=== PATIENT | female | born 1995 | race Caucasian/White ===

== ENCOUNTER 2017-08-21 01:00 | Emergency (ER) | payer OTHER ==
[2017-08-21] MEDS ORDERED: SODIUM CHLORIDE 0.9% 1,000 ML IV ONE (02:24)
[2017-08-21 02:32] LABS: Appearance,Urine Clear (Clear); Bilirubin,Urine Negative (Negative); Glucose,Urine (UA) Negative (Negative); Ketones,Urine Negative (Negative); Leukocyte Esterase,Urine Negative (Negative); Nitrite,Urine Negative (Negative); PH, Urine 6.5 (5.0-8.0); Protein,Urine Negative (Negative); Specific Gravity,Urine 1.003 (1.001-1.035); UA Billing (MACRO vs. MICRO) CHEM; Urobilinogen,Urine <2.0 mg/dL (<2.0)
[2017-08-21 03:04] LABS: Basophils # (A) 0.1 k/uL (0-0.2); Basophils % (A) 1 %; CH 28.4; CHCM 32.5; Eosinophils # (A) 0.2 k/uL (0-0.7); Eosinophils % (A) 2 %; HCT 42.2 % (34.0-46.0); HDW 2.57; HGB 13.6 gm/dL (11.4-16.0); Luc # (Auto) 0.24; Luc % (Auto) 3; Lymphocytes # (A) 3.3 k/uL (1.0-4.8); Lymphocytes % (A) 36 %; MCH 28.3 pg (25.0-35.0); MCHC 32.2 g/dL (31.0-37.0); MCV 87.8 fL (80.0-100.0); Mean Platelet Volume 6.6; Monocytes # (A) 0.6 k/uL (0-1.0); Monocytes % (A) 6 %; Neutrophils # (A) 4.9 k/uL (1.3-7.7); Neutrophils % (A) 53 %; WBC 9.2 k/uL (4.0-11.0); WBC (Perox) 8.66
[2017-08-21 03:06] LABS: ALT 32 U/L (9-52); AST 21 U/L (14-36); Alkaline Phosphatase 91 U/L (38-126); Anion Gap 12 mmol/L; Blood Urea Nitrogen 10 mg/dL (7-17); Calcium 9.5 mg/dL (8.4-10.2); Carbon Dioxide 23 mmol/L (22-30); Chloride 104 mmol/L (98-107); Glucose 89 mg/dL (74-99); Non-African American GFR(MDRD) >60 (>60 ml/min/1.73 sqM); Potassium 3.6 mmol/L (3.5-5.1); Sodium 139 mmol/L (137-145); Total Bilirubin 0.3 mg/dL (0.2-1.3); Total Protein 7.7 g/dL (6.3-8.2)
--- NOTE | 2017-08-21 03:19 | XR ---
EXAMINATION TYPE: XR chest 2V DATE OF EXAM: 08/21/2017 COMPARISON: NONE HISTORY: Congestion. Pain. TECHNIQUE: Frontal and lateral views of the chest are obtained. FINDINGS: Heart and mediastinum are normal. Lungs are clear. Diaphragm is normal. Bony thorax appear s normal. IMPRESSION: Normal chest
--- NOTE | 2017-08-21 03:59 | ED ---
Abdominal Pain HPI - General Chief Complaint: Abdominal Pain Stated Complaint: Lump in Throat/Stomach Pain Time Seen by Provider: 08/21/17 02:09 Source: patient, RN notes reviewed, old records reviewed Mode of arrival: ambulatory Limitations: no limitations - History of Present Illness Initial Comments: This is a 22 year old female with multiple complaints. She reports that she has had a sore throat, lower abdominal pain, cough, and concern for possible . Patient also reports she has noticed swelling on her neck from lymphnodes. She repots she has had a sore throat for 1 week, accompanied by a dry non productive cough. She reports that she does not smoke. She also reports that she has had unprotected sex 1 week ago, and thinks she is . She has no fever or chills, received all child vaccines and denies travel history. She states that she has had no nausea, vomiting, patient deines any dysuria, or changes in bowel movemnts. Denies any history of sick contacts. - Related Data Previous Rx's Medication Instructions Recorded Azithromycin [Zithromax Z-pack] 250 mg PO DIRECTED #6 tab 08/21/17 methylPREDNISolone Dose Pack 4 mg PO DIRECTED #21 package 08/21/17 [Medrol Dose Pack] Allergies Allergy/AdvReac Type Severity Reaction Status Date / Time No Known Allergies Allergy Verified 08/21/17 01:31 Review of Systems ROS Statement: Those systems with pertinent positive or pertinent negative responses have been documented in the HPI. ROS Other: All systems not noted in ROS Statement are negative. Past Medical History Past Medical History: Asthma History of Any Multi-Drug Resistant Organisms: None Reported Past Surgical History: No Surgical Hx Reported Past Psychological History: No Psychological Hx Reported Smoking Status: Never smoker Past Alcohol Use History: None Reported Past Drug Use History: None Reported General Exam - General Exam Comments Initial Comments: This is a 22 year old female, no distress. Limitations: no limitations General appearance: alert, in no apparent distress Head exam: Present: atraumatic, normocephalic, normal inspection Eye exam: Present: normal appearance, PERRL, EOMI. Absent: scleral icterus, conjunctival injection, periorbital swelling ENT exam: Present: normal exam, mucous membranes moist. Absent: normal oropharynx (erythematous oropharynx. ) Neck exam: Present: normal inspection, lymphadenopathy (anterior cerivcal right sided lymphadenopathy). Absent: tenderness, meningismus Respiratory exam: Present: normal lung sounds bilaterally, other (persistent cough, non productive. ). Absent: respiratory distress, wheezes, rales, rhonchi , stridor Cardiovascular Exam: Present: regular rate, normal rhythm, normal heart sounds. Absent: systolic murmur, diastolic murmur, rubs, gallop, clicks GI/Abdominal exam: Present: soft, normal bowel sounds. Absent: distended, tenderness, guarding, rebound, rigid Extremities exam: Present: normal inspection, full ROM, normal capillary refill. Absent: tenderness, pedal edema, joint swelling, calf tenderness Back exam: Present: normal inspection Neurological exam: Present: alert, oriented X3, CN II-XII intact Psychiatric exam: Present: normal affect, normal mood Skin exam: Present: warm, dry, intact, normal color. Absent: rash Course Vital Signs 08/21/17 08/21/17 01:26 04:03 Temperature 98.7 F 97.6 F Pulse Rate 89 79 Respiratory 16 18 Rate Blood Pressure 155/97 117/55 O2 Sat by Pulse 100 99 Oximetry Medical Decision Making - Medical Decision Making This is a 22 year old female with multiple complaints. She reports that she has had a sore throat, lower abdominal pain, cough, and concern for possible . Patient also reports she has noticed swelling on her neck from lymphnodes. She repots she has had a sore throat for 1 week, accompanied by a dry non productive cough. Patient has erythematous oropharynx, and significant cough. Lungs are clear to auscultaion. Patient test is negative. Discused that based off of when she had intercourse, she could possibly be and test be negative. Discussed repeat test in 3 weeks. Paitent will be started on medrol dose pack and azithromycin for bronchitis and pharyngitis. Discussed returning to ED if any alarming signs or symptoms occur. - Lab Data Result diagrams: 08/21/17 02:30 08/21/17 02:30 Lab Results 08/21/17 08/21/17 08/21/17 Range/Units 01:35 01:35 02:30 WBC 9.2 (4.0-11.0) k/uL RBC 4.80 (3.80-5.40) m/uL Hgb 13.6 (11.4-16.0) gm/dL Hct 42.2 (34.0-46.0) % MCV 87.8 (80.0-100.0) fL MCH 28.3 (25.0-35.0) pg MCHC 32.2 (31.0-37.0) g/dL RDW 14.0 (11.5-15.5) % Plt Count 271 (150-450) k/uL Neutrophils % 53 % Lymphocytes % 36 % Monocytes % 6 % Eosinophils % 2 % Basophils % 1 % Neutrophils # 4.9 (1.3-7.7) k/uL Lymphocytes # 3.3 (1.0-4.8) k/uL Monocytes # 0.6 (0-1.0) k/uL Eosinophils # 0.2 (0-0.7) k/uL Basophils # 0.1 (0-0.2) k/uL Sodium (137-145) mmol/L Potassium (3.5-5.1) mmol/L Chloride (98-107) mmol/L Carbon Dioxide (22-30) mmol/L Anion Gap mmol/L BUN (7-17) mg/dL Creatinine (0.52-1.04) mg/dL Est GFR (MDRD) Af Amer (>60 ml/min/1.73 sqM) Est GFR (MDRD) Non-Af (>60 ml/min/1.73 sqM) Glucose (74-99) mg/dL Calcium (8.4-10.2) mg/dL Total Bilirubin (0.2-1.3) mg/dL AST (14-36) U/L ALT (9-52) U/L Alkaline Phosphatase (38-126) U/L Total Protein (6.3-8.2) g/dL Albumin (3.5-5.0) g/dL Urine Color Colorless Urine Appearance Clear (Clear) Urine pH 6.5 (5.0-8.0) Ur Specific [place] 1.003 (1.001-1.035) Urine Protein Negative (Negative) Urine Glucose (UA) Negative (Negative) Urine Ketones Negative (Negative) Urine Blood Negative (Negative) Urine Nitrite Negative (Negative) Urine Bilirubin Negative (Negative) Urine Urobilinogen <2.0 (<2.0) mg/dL Ur Leukocyte Esterase Negative (Negative) Urine HCG, Qual Not Detected (Not Detectd) Group A Strep Rapid (Negative) 08/21/17 08/21/17 Range/Units 02:30 02:35 WBC (4.0-11.0) k/uL RBC (3.80-5.40) m/uL Hgb (11.4-16.0) gm/dL Hct (34.0-46.0) % MCV (80.0-100.0) fL MCH (25.0-35.0) pg MCHC (31.0-37.0) g/dL RDW (11.5-15.5) % Plt Count (150-450) k/uL Neutrophils % % Lymphocytes % % Monocytes % % Eosinophils % % Basophils % % Neutrophils # (1.3-7.7) k/uL Lymphocytes # (1.0-4.8) k/uL Monocytes # (0-1.0) k/uL Eosinophils # (0-0.7) k/uL Basophils # (0-0.2) k/uL Sodium 139 (137-145) mmol/L Potassium 3.6 (3.5-5.1) mmol/L Chloride 104 (98-107) mmol/L Carbon Dioxide 23 (22-30) mmol/L Anion Gap 12 mmol/L BUN 10 (7-17) mg/dL Creatinine 0.70 (0.52-1.04) mg/dL Est GFR (MDRD) Af Amer >60 (>60 ml/min/1.73 sqM) Est GFR (MDRD) Non-Af >60 (>60 ml/min/1.73 sqM) Glucose 89 (74-99) mg/dL Calcium 9.5 (8.4-10.2) mg/dL Total Bilirubin 0.3 (0.2-1.3) mg/dL AST 21 (14-36) U/L ALT 32 (9-52) U/L Alkaline Phosphatase 91 (38-126) U/L Total Protein 7.7 (6.3-8.2) g/dL Albumin 4.2 (3.5-5.0) g/dL Urine Color Urine Appearance (Clear) Urine pH (5.0-8.0) Ur Specific [place] (1.001-1.035) Urine Protein (Negative) Urine Glucose (UA) (Negative) Urine Ketones (Negative) Urine Blood (Negative) Urine Nitrite (Negative) Urine Bilirubin (Negative) Urine Urobilinogen (<2.0) mg/dL Ur Leukocyte Esterase (Negative) Urine HCG, Qual (Not Detectd) Group A Strep Rapid Negative (Negative) - Radiology Data Radiology results: report reviewed Chest x-ray was reviewed and shows normal chest. Disposition Clinical Impression: Pharyngitis, Abdominal pain Disposition: HOME SELF-CARE Condition: Good Instructions: Pharyngitis (ED) Additional Instructions: patient has a rest, increase fluids. Patient should follow up with primary care provider. Return to the emergency department if any alarming signs or symptoms occur. Prescriptions: Azithromycin [Zithromax Z-pack] 250 mg PO DIRECTED #6 tab methylPREDNISolone Dose Pack [Medrol Dose Pack] 4 mg PO DIRECTED #21 package Referrals: None,Stated [Primary Care Provider] - 1-2 days Alba Ramos MD [STAFF PHYSICIAN] - 1-2 days Time of Disposition: 03:58
[2017-08-21 04:07] VITALS: BP 117/55; PULSE 79; RESP 18; TEMP 97.6
== END 2017-08-21 04:12 | disposition home or self-care (01) ==
LOC: EC 01:00
DX: R10.30 Lower abdominal pain, unspecified (principal); J02.9 Acute pharyngitis, unspecified
CPT/HCPCS: 36415; 71020; 80053; 81003; 81025; 85025; 87081; 87430; 96360; 99284

== ENCOUNTER 2019-08-15 19:51 | Inpatient (IN) | payer OTHER ==
[2019-08-15] MEDS ORDERED: ACETAMINOPHEN TAB 325 MG TAB PO STA (20:41)
[2019-08-15] MEDS ORDERED: IBUPROFEN IV 800 MG in SODIUM CHLORIDE 0.9% 250 ML IV ONE (20:42)
[2019-08-15] MEDS ORDERED: SODIUM CHLORIDE 0.9% 2,000 ML IV ONE (20:42)
[2019-08-15] MEDS ORDERED: ONDANSETRON 4 MG/2 ML VIAL IVP STA (20:42)
[2019-08-15 21:22] LABS: Albumin 3.2 g/dL (3.5-5.0); Calcium 8.2 mg/dL (8.4-10.2); Total Bilirubin 0.9 mg/dL (0.2-1.3); Total Protein 6.5 g/dL (6.3-8.2)
[2019-08-15 21:25] LABS: INR 1.1 (<1.2); Partial Thromboplastin Time 29.7 sec (22.0-30.0); Prothrombin Time 11.2 sec (9.0-12.0)
[2019-08-15 21:40] LABS: Basophils # (A) 0.2 k/uL (0-0.2); Basophils % (A) 1 %; Eosinophils # (A) 0.2 k/uL (0-0.7); Eosinophils % (A) 1 %; HCT 31.1 % (34.0-46.0); HGB 11.1 gm/dL (11.4-16.0); Lymphocytes # (A) 0.8 k/uL (1.0-4.8); Lymphocytes % (A) 4 %; MCH 29.2 pg (25.0-35.0); MCHC 35.6 g/dL (31.0-37.0); MCV 82.1 fL (80.0-100.0); Mean Platelet Volume 7.3; Monocytes # (A) 1.1 k/uL (0-1.0); Monocytes % (A) 5 %; Neutrophils # (A) 18.6 k/uL (1.3-7.7); Neutrophils % (A) 89 %; Platelet Count 220 k/uL (150-450); RBC 3.79 m/uL (3.80-5.40); RDW 12.7 % (11.5-15.5)
[2019-08-15 22:10] LABS: Appearance,Urine Cloudy (Clear); Bilirubin,Urine Negative (Negative); Blood,Urine Small (Negative); Color,Urine Yellow; Glucose,Urine (UA) Negative (Negative); Ketones,Urine Negative (Negative); Leukocyte Esterase,Urine Moderate (Negative); Mucus,Urine Rare /hpf; Nitrite,Urine Negative (Negative); Protein,Urine 1+ (Negative); RBC,Urine 5 /hpf (0-5); Specific Gravity,Urine 1.006 (1.001-1.035); Squamous Epithelial Cell,Urine 1 /hpf (0-4); Urobilinogen,Urine <2.0 mg/dL (<2.0); WBC,Urine 16 /hpf (0-5)
--- NOTE | 2019-08-16 00:03 | CT ---
EXAMINATION TYPE: CT abdomen pelvis wo con DATE OF EXAM: 08/15/2019 COMPARISON: None HISTORY: low back pain CT DLP: 733.9 mGycm Automated exposure control for dose reduction was used. TECHNIQUE: Helical acquisition of images was performed from the lung bases through the pelvis. FINDINGS: There is subsegmental atelectasis at the posterior lung bases. Heart size is normal. There is no fidel cardial effusion. There is no pleural effusion. Liver shows no focal defect. Spleen is intact. The st omach appears normal. There is no evidence of pancreatic mass. Gallbladder appears normal. There is n o adrenal mass. Right kidney is larger than the left. There is minimal right-sided perinephric edema. There is mild ectasia of the right ureter. There is right side periureteral edema. I see no definite ureteral calculus. There is no retroperitoneal adenopathy. There is small umbilical hernia that cont ains fat. The appendix appears normal. Bladder distends smoothly. Uterus is anteverted. There is tiny amount of free fluid in the pelvis. Karen mbar spine is intact. Bony pelvis appears intact. I see no bony destructive process. There is no mesenteric edema. There is no ascites or free air. There is no sign of a bowel obstructio n. IMPRESSION: DIFFUSE SWELLING OF THE ENTIRE RIGHT KIDNEY WITH PERINEPHRIC EDEMA AND PERIURETERAL EDEMA. THIS PROBA EMILY RELATES TO ACUTE SEVERE PYELONEPHRITIS. NORMAL APPENDIX.
[2019-08-16] MEDS ORDERED: NALOXONE 0.4 MG/ML 1 ML VIAL IV PRN (00:50)
[2019-08-16] MEDS ORDERED: MORPHINE SULFATE 4 MG/ML SYRINGE IVP PRN (00:52)
--- NOTE | 2019-08-16 00:55 | ED ---
General Adult HPI - General Chief complaint: Nausea/Vomiting/Diarrhea Stated complaint: Vomiting/diarrhea Time Seen by Provider: 08/15/19 20:25 Source: patient, family Mode of arrival: ambulatory Limitations: no limitations - History of Present Illness Initial comments: 24-year-old female patient presents to the emergency department today for multiple complaints including vomiting, diarrhea, fever, chills, generalized body aches, and bilateral flank pain. Patient states symptoms have been going on over the last 5 days. Patient states that nothing she tries is making her feel better. Patient states she tried taking ibuprofen this morning but vomited up. Those last episode of vomiting today. She denies chance of . She denies any recent travel or sick contacts. Denies any cough or sore throat. She is reporting headache and neck stiffness. Patient denies any recent rash, shortness breath, chest pain, diarrhea, constipation, numbness, tingling, dizziness, weakness, visual changes, or any other complaints. - Related Data Previous Rx's Medication Instructions Recorded Azithromycin [Zithromax Z-pack] 250 mg PO DIRECTED #6 tab 08/21/17 methylPREDNISolone Dose Pack 4 mg PO DIRECTED #21 package 08/21/17 [Medrol Dose Pack] Allergies Allergy/AdvReac Type Severity Reaction Status Date / Time benzoyl peroxide Allergy Swelling Verified 08/15/19 20:06 Review of Systems ROS Statement: Those systems with pertinent positive or pertinent negative responses have been documented in the HPI. ROS Other: All systems not noted in ROS Statement are negative. Past Medical History Past Medical History: Asthma History of Any Multi-Drug Resistant Organisms: None Reported Past Surgical History: No Surgical Hx Reported Past Psychological History: No Psychological Hx Reported Smoking Status: Never smoker Past Alcohol Use History: Occasional Past Drug Use History: None Reported General Exam Limitations: no limitations General appearance: alert, in no apparent distress, other (This is a well- developed, well-nourished adult female patient in mild distress. Vital signs upon presentation are temperature 102.3F, pulse 147, respirations 20, blood pressure 97/65, pulse ox 99% on room air.) Eye exam: Present: normal appearance, PERRL, EOMI. Absent: scleral icterus, conjunctival injection, periorbital swelling ENT exam: Present: normal exam, normal oropharynx, mucous membranes moist Respiratory exam: Present: normal lung sounds bilaterally. Absent: respiratory distress, wheezes, rales, rhonchi, stridor Cardiovascular Exam: Present: regular rate, normal rhythm, normal heart sounds. Absent: systolic murmur, diastolic murmur, rubs, gallop, clicks GI/Abdominal exam: Present: soft, tenderness (Suprapubic), normal bowel sounds. Absent: distended, guarding, rebound, rigid Back exam: Present: normal inspection, CVA tenderness (R) (Exquisite), CVA tenderness (L) Neurological exam: Present: alert, oriented X3, CN II-XII intact Psychiatric exam: Present: normal affect, normal mood Skin exam: Present: warm, dry, intact, normal color. Absent: rash Course Vital Signs 08/15/19 08/15/19 08/16/19 20:01 22:06 00:35 Temperature 102.3 F H 100.7 F H 98 F Pulse Rate 147 H 119 H 110 H Respiratory 20 20 18 Rate Blood Pressure 97/65 110/70 103/58 O2 Sat by Pulse 99 99 98 Oximetry Medical Decision Making - Medical Decision Making 24-year-old female patient presents to the emergency department today for evaluation of fever, vomiting, generalized body aches, and bilateral flank pain. Physical examination reveals exquisite right CVA tenderness. Suprapubic tenderness. Labs reviewed and did reveal white blood cell count of 21, hemoglobin 11.1, neutrophils of 18.6. Sodium is 132, chloride 97. BUN elevated at 20, creatinine 1.91. Glucose is 139. Urinalysis shows a cloudy appearance with 1+ protein, small blood, moderate leukocyte esterase, 16 white blood cells, rare mucous. HCG is negative. Influenza testing is negative. CT of the abdomen and pelvis without contrast was obtained and did show severe right-sided pyelonephritis. I did discuss findings and results with the patient. She was started on Rocephin. IV fluids initiated. She'll be admitted to the hospital for further evaluation. - Lab Data Result diagrams: 08/15/19 20:32 08/15/19 20:32 Lab Results 08/15/19 08/15/19 08/15/19 Range/Units 20:32 20:32 20:32 WBC 21.0 H (3.8-10.6) k/uL RBC 3.79 L (3.80-5.40) m/uL Hgb 11.1 L (11.4-16.0) gm/dL Hct 31.1 L (34.0-46.0) % MCV 82.1 (80.0-100.0) fL MCH 29.2 (25.0-35.0) pg MCHC 35.6 (31.0-37.0) g/dL RDW 12.7 (11.5-15.5) % Plt Count 220 (150-450) k/uL Neutrophils % 89 % Lymphocytes % 4 % Monocytes % 5 % Eosinophils % 1 % Basophils % 1 % Neutrophils # 18.6 H (1.3-7.7) k/uL Lymphocytes # 0.8 L (1.0-4.8) k/uL Monocytes # 1.1 H (0-1.0) k/uL Eosinophils # 0.2 (0-0.7) k/uL Basophils # 0.2 (0-0.2) k/uL PT (9.0-12.0) sec INR (<1.2) APTT (22.0-30.0) sec Sodium 132 L (137-145) mmol/L Potassium 4.0 (3.5-5.1) mmol/L Chloride 97 L (98-107) mmol/L Carbon Dioxide 24 (22-30) mmol/L Anion Gap 11 mmol/L BUN 20 H (7-17) mg/dL Creatinine 1.91 H (0.52-1.04) mg/dL Est GFR (CKD-EPI)AfAm 42 (>60 ml/min/1.73 sqM) Est GFR (CKD-EPI)NonAf 37 (>60 ml/min/1.73 sqM) Glucose 139 H (74-99) mg/dL Plasma Lactic Acid Tuan 1.4 (0.7-2.0) mmol/L Calcium 8.2 L (8.4-10.2) mg/dL Total Bilirubin 0.9 (0.2-1.3) mg/dL AST 21 (14-36) U/L ALT 24 (9-52) U/L Alkaline Phosphatase 107 (38-126) U/L Total Protein 6.5 (6.3-8.2) g/dL Albumin 3.2 L (3.5-5.0) g/dL Urine Color Urine Appearance (Clear) Urine pH (5.0-8.0) Ur Specific [place] (1.001-1.035) Urine Protein (Negative) Urine Glucose (UA) (Negative) Urine Ketones (Negative) Urine Blood (Negative) Urine Nitrite (Negative) Urine Bilirubin (Negative) Urine Urobilinogen (<2.0) mg/dL Ur Leukocyte Esterase (Negative) Urine RBC (0-5) /hpf Urine WBC (0-5) /hpf Ur Squamous Epith Cells (0-4) /hpf Urine Mucus (None) /hpf Urine HCG, Qual (Not Detectd) Influenza Type A RNA (Not Detectd) Influenza Type B (PCR) (Not Detectd) 08/15/19 08/15/19 08/15/19 Range/Units 20:32 21:04 21:55 WBC (3.8-10.6) k/uL RBC (3.80-5.40) m/uL Hgb (11.4-16.0) gm/dL Hct (34.0-46.0) % MCV (80.0-100.0) fL MCH (25.0-35.0) pg MCHC (31.0-37.0) g/dL RDW (11.5-15.5) % Plt Count (150-450) k/uL Neutrophils % % Lymphocytes % % Monocytes % % Eosinophils % % Basophils % % Neutrophils # (1.3-7.7) k/uL Lymphocytes # (1.0-4.8) k/uL Monocytes # (0-1.0) k/uL Eosinophils # (0-0.7) k/uL Basophils # (0-0.2) k/uL PT 11.2 (9.0-12.0) sec INR 1.1 (<1.2) APTT 29.7 (22.0-30.0) sec Sodium (137-145) mmol/L Potassium (3.5-5.1) mmol/L Chloride (98-107) mmol/L Carbon Dioxide (22-30) mmol/L Anion Gap mmol/L BUN (7-17) mg/dL Creatinine (0.52-1.04) mg/dL Est GFR (CKD-EPI)AfAm (>60 ml/min/1.73 sqM) Est GFR (CKD-EPI)NonAf (>60 ml/min/1.73 sqM) Glucose (74-99) mg/dL Plasma Lactic Acid Tuan (0.7-2.0) mmol/L Calcium (8.4-10.2) mg/dL Total Bilirubin (0.2-1.3) mg/dL AST (14-36) U/L ALT (9-52) U/L Alkaline Phosphatase (38-126) U/L Total Protein (6.3-8.2) g/dL Albumin (3.5-5.0) g/dL Urine Color Yellow Urine Appearance Cloudy H (Clear) Urine pH 6.0 (5.0-8.0) Ur Specific [place] 1.006 (1.001-1.035) Urine Protein 1+ H (Negative) Urine Glucose (UA) Negative (Negative) Urine Ketones Negative (Negative) Urine Blood Small H (Negative) Urine Nitrite Negative (Negative) Urine Bilirubin Negative (Negative) Urine Urobilinogen <2.0 (<2.0) mg/dL Ur Leukocyte Esterase Moderate H (Negative) Urine RBC 5 (0-5) /hpf Urine WBC 16 H (0-5) /hpf Ur Squamous Epith Cells 1 (0-4) /hpf Urine Mucus Rare H (None) /hpf Urine HCG, Qual (Not Detectd) Influenza Type A RNA Not Detected (Not Detectd) Influenza Type B (PCR) Not Detected (Not Detectd) 08/15/19 Range/Units 21:55 WBC (3.8-10.6) k/uL RBC (3.80-5.40) m/uL Hgb (11.4-16.0) gm/dL Hct (34.0-46.0) % MCV (80.0-100.0) fL MCH (25.0-35.0) pg MCHC (31.0-37.0) g/dL RDW (11.5-15.5) % Plt Count (150-450) k/uL Neutrophils % % Lymphocytes % % Monocytes % % Eosinophils % % Basophils % % Neutrophils # (1.3-7.7) k/uL Lymphocytes # (1.0-4.8) k/uL Monocytes # (0-1.0) k/uL Eosinophils # (0-0.7) k/uL Basophils # (0-0.2) k/uL PT (9.0-12.0) sec INR (<1.2) APTT (22.0-30.0) sec Sodium (137-145) mmol/L Potassium (3.5-5.1) mmol/L Chloride (98-107) mmol/L Carbon Dioxide (22-30) mmol/L Anion Gap mmol/L BUN (7-17) mg/dL Creatinine (0.52-1.04) mg/dL Est GFR (CKD-EPI)AfAm (>60 ml/min/1.73 sqM) Est GFR (CKD-EPI)NonAf (>60 ml/min/1.73 sqM) Glucose (74-99) mg/dL Plasma Lactic Acid Tuan (0.7-2.0) mmol/L Calcium (8.4-10.2) mg/dL Total Bilirubin (0.2-1.3) mg/dL AST (14-36) U/L ALT (9-52) U/L Alkaline Phosphatase (38-126) U/L Total Protein (6.3-8.2) g/dL Albumin (3.5-5.0) g/dL Urine Color Urine Appearance (Clear) Urine pH (5.0-8.0) Ur Specific [place] (1.001-1.035) Urine Protein (Negative) Urine Glucose (UA) (Negative) Urine Ketones (Negative) Urine Blood (Negative) Urine Nitrite (Negative) Urine Bilirubin (Negative) Urine Urobilinogen (<2.0) mg/dL Ur Leukocyte Esterase (Negative) Urine RBC (0-5) /hpf Urine WBC (0-5) /hpf Ur Squamous Epith Cells (0-4) /hpf Urine Mucus (None) /hpf Urine HCG, Qual Not Detected (Not Detectd) Influenza Type A RNA (Not Detectd) Influenza Type B (PCR) (Not Detectd) - Radiology Data Radiology results: report reviewed, image reviewed CT abdomen and pelvis without contrast was obtained. Report reviewed in its entirety. Impression by Dr. Lopez shows diffuse swelling of the entire right kidney with perinephric edema and periureteral edema. This probably relates to acute severe pyelonephritis. Normal appendix. Disposition Clinical Impression: Pyelonephritis of right kidney, Acute kidney injury, Sepsis Disposition: ADMITTED IP TO THIS HOSP Condition: Serious Referrals: None,Stated [Primary Care Provider] - 1-2 days Decision to Admit Reason: Admit from EC Decision Date: 08/16/19 Decision Time: 00:59
[2019-08-16] MEDS: SODIUM CHLORIDE 0.9% 1,000 ML IV SCH (02:34)
[2019-08-16 03:34] VITALS: BMI 36.9
[2019-08-16] MEDS: ONDANSETRON 4 MG/2 ML VIAL IVP PRN ×2 (13:21→22:55)
[2019-08-16] MEDS: HYDROmorphone 0.5 MG/0.5 ML SYRINGE IVP PRN ×2 (13:23→22:50)
--- NOTE | 2019-08-16 13:26 | P.HPIM ---
History of Present Illness 22-year-old presents female came in with the nausea vomiting diarrhea fever chills body aches bilateral flank pain along with suprapubic pain dysuria patient had multiple episodes of vomiting has been taking ibuprofen multiple times a day patient's symptoms has been going on for about 5 days denies any chance of . Denied any recent sick travel or sick contacts. Patient is found to have significantly abnormal urine with a leukocytosis pyelonephritis on the CAT scan. There is no obvious nephrolithiasis on the CAT scan. Patient's creatinine is elevated to 1.9 probably related to intake of nonsteroidal anti-inflammatory medications. Patient has perinephric edema and diffuse swelling of the entire right kidney Review of Systems REVIEW OF SYSTEMS: CONSTITUTIONAL: As mentioned in HPI HEENT: No recent visual problems or hearing problems. Denied any sore throat. CARDIOVASCULAR: No chest pain, orthopnea, PND, no palpitations, no syncope. PULMONARY: No shortness of breath, no cough, no hemoptysis. GASTROINTESTINAL: As mentioned in HPI. NEUROLOGICAL: No headaches, no weakness, no numbness. HEMATOLOGICAL: Denies any bleeding or petechiae. GENITOURINARY: Denies any burning micturition, frequency, or urgency. MUSCULOSKELETAL/RHEUMATOLOGICAL: Denies any joint pain, swelling, or any muscle pain. ENDOCRINE: Denies any polyuria or polydipsia. The rest of the 14-point review of systems is negative. Past Medical History Past Medical History: Asthma History of Any Multi-Drug Resistant Organisms: None Reported Past Surgical History: No Surgical Hx Reported Past Anesthesia/Blood Transfusion Reactions: No Reported Reaction Past Psychological History: No Psychological Hx Reported Smoking Status: Never smoker Past Alcohol Use History: Occasional Past Drug Use History: None Reported Additional Drug Use History / Comment(s): Smokes occasionally - Past Family History Mother Family Medical History: No Reported History Medications and Allergies Home Medications Medication Instructions Recorded Confirmed Type Ibuprofen [Motrin Ib] 200 mg PO Q6H PRN 08/16/19 08/16/19 History Allergies Allergy/AdvReac Type Severity Reaction Status Date / Time benzoyl peroxide Allergy Intermediate Swelling Verified 08/16/19 07:55 Physical Exam Vitals: Vital Signs Temp Pulse Pulse Resp BP BP BP 08/16/19 08:17 98.2 F 102 H 14 106/69 08/16/19 08:16 81/57 08/16/19 08:15 81/57 08/16/19 03:20 98.1 F 106 H 18 100/66 08/16/19 02:31 97.7 F 98 18 102/67 08/16/19 00:35 98 F 110 H 18 103/58 08/15/19 22:06 100.7 F H 119 H 20 110/70 08/15/19 20:01 102.3 F H 147 H 20 97/65 Pulse Ox 08/16/19 08:17 98 08/16/19 08:16 08/16/19 08:15 08/16/19 03:20 98 08/16/19 02:31 98 08/16/19 00:35 98 08/15/19 22:06 99 08/15/19 20:01 99 Intake and Output 08/15/19 08/16/19 08/16/19 22:59 06:59 14:59 Intake Total 1400 Output Total 100 350 Balance 1300 -350 Intake: Oral 1400 Output: Urine 100 350 Other: Voiding Method Toilet Toilet Toilet Weight 83.007 kg 85.474 kg PHYSICAL EXAMINATION: GENERAL: The patient is alert and oriented x3, not in any acute distress. Well developed, well nourished. Patient is a very appears to be fatigued and tired HEENT: Pupils are round and equally reacting to light. EOMI. No scleral icterus. No conjunctival pallor. Normocephalic, atraumatic. No pharyngeal erythema. No thyromegaly. CARDIOVASCULAR: S1 and S2 present. No murmurs, rubs, or gallops. PULMONARY: Chest is clear to auscultation, no wheezing or crackles. ABDOMEN: She does have tenderness in both the CVA areas including suprapubic tenderness MUSCULOSKELETAL: No joint swelling or deformity. EXTREMITIES: No cyanosis, clubbing, or pedal edema. NEUROLOGICAL: Gross neurological examination did not reveal any focal deficits. SKIN: No rashes. Results CBC & Chem 7: 08/15/19 20:32 08/15/19 20:32 Labs: Abnormal Lab Results - Last 24 Hours (Table) 08/15/19 08/15/19 08/15/19 Range/Units 20:32 20:32 21:55 WBC 21.0 H (3.8-10.6) k/uL RBC 3.79 L (3.80-5.40) m/uL Hgb 11.1 L (11.4-16.0) gm/dL Hct 31.1 L (34.0-46.0) % Neutrophils # 18.6 H (1.3-7.7) k/uL Lymphocytes # 0.8 L (1.0-4.8) k/uL Monocytes # 1.1 H (0-1.0) k/uL Sodium 132 L (137-145) mmol/L Chloride 97 L (98-107) mmol/L BUN 20 H (7-17) mg/dL Creatinine 1.91 H (0.52-1.04) mg/dL Glucose 139 H (74-99) mg/dL Calcium 8.2 L (8.4-10.2) mg/dL Albumin 3.2 L (3.5-5.0) g/dL Urine Appearance Cloudy H (Clear) Urine Protein 1+ H (Negative) Urine Blood Small H (Negative) Ur Leukocyte Esterase Moderate H (Negative) Urine WBC 16 H (0-5) /hpf Urine Mucus Rare H (None) /hpf Microbiology - Last 24 Hours (Table) 08/15/19 21:55 Urine Culture - Preliminary Urine,Clean Catch Thrombosis Risk Factor Assmnt - Choose All That Apply Any of the Below Risk Factors Present?: Yes Each Factor Represents 1 point: Obesity (BMI >25) Other Risk Factors: No Other congenital or acquired thrombophilia - If yes, enter type in comment: No Thrombosis Risk Factor Assessment Total Risk Factor Score: 1 Thrombosis Risk Factor Assessment Level: Low Risk Assessment and Plan Plan: - severe sepsis secondary to urinary tract infection, pyelonephritis: Continue w jose roberto Diane it's. -Hypovolemic nectar hyponatremia IV fluids as mentioned above -Acute renal failure possibility of prerenal azotemia continue with IV fluids and the and is said may be contributing to her renal dysfunction as well nephrology was consulted. Patient is urinating well at this time -Leukocytosis secondary to sepsis as mentioned above -Tachycardia secondary to sepsis and fever -Asthma without any acute exacerbation
--- NOTE | 2019-08-16 13:29 | P.NPCON ---
History of Present Illness - Reason for Consult acute renal failure - History of Present Illness Reason for consultation: Acute kidney injury History of present illness: Patient is a 24-year-old female seen in consultation for acute kidney injury. Patient's creatinine August 2017 was 0.7 and was elevated at 1.91 this admission. Patient presented to the hospital with nausea vomiting and diarrhea going on for about 4 days. She denies any hematuria or dysuria. She does admit to chills. Patient underwent a CAT scan of the abdomen and pelvis which reveals severe Duke nephritis. She is currently maintained on antibiotics. Urine culture is pending. She does admit to taking 4 200 mg tablets of Motrin daily for the last 4 days. No history of diabetes. She does not know her family history as she is adopted. She feels a little better today. Oral intake is still poor. No vomiting or diarrhea today. Does admit to abdominal discomfort. No chest pain or shortness of breath. Vital signs are stable. General: The patient appeared well nourished and normally developed. HEENT: Head exam is unremarkable. Neck is without jugular venous distension. LUNGS: Lungs are clear to auscultation and percussion. Breath sounds decreased. HEART: Rate and Rhythm are regular. First and second heart sounds normal. No murmurs, rubs or gallops. ABDOMEN: Bowel sounds present. Soft. EXTREMITITES: No clubbing, cyanosis, or edema. Past Medical History Past Medical History: Asthma History of Any Multi-Drug Resistant Organisms: None Reported Past Surgical History: No Surgical Hx Reported Past Anesthesia/Blood Transfusion Reactions: No Reported Reaction Past Psychological History: No Psychological Hx Reported Smoking Status: Never smoker Past Alcohol Use History: Occasional Past Drug Use History: None Reported Additional Drug Use History / Comment(s): Smokes occasionally - Past Family History Mother Family Medical History: No Reported History Medications and Allergies Home Medications Medication Instructions Recorded Confirmed Type Ibuprofen [Motrin Ib] 200 mg PO Q6H PRN 08/16/19 08/16/19 History Allergies Allergy/AdvReac Type Severity Reaction Status Date / Time benzoyl peroxide Allergy Intermediate Swelling Verified 08/16/19 07:55 Physical Exam Vitals: Vital Signs Temp Pulse Pulse Resp BP BP BP 08/16/19 08:17 98.2 F 102 H 14 106/69 08/16/19 08:16 81/57 08/16/19 08:15 81/57 08/16/19 03:20 98.1 F 106 H 18 100/66 08/16/19 02:31 97.7 F 98 18 102/67 08/16/19 00:35 98 F 110 H 18 103/58 08/15/19 22:06 100.7 F H 119 H 20 110/70 08/15/19 20:01 102.3 F H 147 H 20 97/65 Pulse Ox 08/16/19 08:17 98 08/16/19 08:16 08/16/19 08:15 08/16/19 03:20 98 08/16/19 02:31 98 08/16/19 00:35 98 08/15/19 22:06 99 08/15/19 20:01 99 Intake and Output 08/15/19 08/16/19 08/16/19 22:59 06:59 14:59 Intake Total 1400 Output Total 100 350 Balance 1300 -350 Intake: Oral 1400 Output: Urine 100 350 Other: Voiding Method Toilet Toilet Toilet Weight 83.007 kg 85.474 kg Results - Lab Results Most recent lab results Calcium 8.2 mg/dL (8.4-10.2) L 08/15/19 20:32 08/15/19 20:32 08/15/19 20:32 Assessment and Plan Plan: Assessment: 1. Acute kidney injury mostly prerenal secondary to intravascular volume depletion from vomiting and diarrhea further worsened with the use of nonsteroidals. Creatinine 1.91 on admission. 2. Pyelonephritis maintained on antibiotics. Urine culture pending. 3. Hypovolemic hyponatremia. Plan: Maintain normal saline at 100 mL an hour. Follow-up urine culture. Check a renal ultrasound to assess size of kidneys. Repeat electrolytes in the morning. Thank you for the consultation. I will continue to follow the patient with you during her hospital stay.
[2019-08-16] MEDS: ACETAMINOPHEN TAB 325 MG TAB PO PRN ×2 (13:33→23:18)
--- NOTE | 2019-08-16 15:13 | US ---
EXAMINATION TYPE: US kidneys/renal and bladder DATE OF EXAM: 08/16/2019 COMPARISON: NONE CLINICAL HISTORY: luis. LUIS, bilateral flank pain EXAM MEASUREMENTS: Right Kidney: 11.1 x 5.6 x 6.2 cm Left Kidney: 10.4 x 4.6 x 4.1 cm Right Kidney: no evidence of hydronephrosis Left Kidney: no evidence of hydronephrosis Bladder: not fully distended Bilateral Jets seen: no There is no evidence for hydronephrosis at this point in time. No nephrolithiasis is seen. No latisha s are identified. The urinary bladder is anechoic. Bilateral ureteral jets are seen. IMPRESSION: No acute process
[2019-08-16] MEDS: HYDROcodone/APAP 5-325MG 1 EACH TAB PO PRN (17:30)
[2019-08-17] MEDS: HYDROmorphone 0.5 MG/0.5 ML SYRINGE IVP PRN ×3 (04:45→20:25)
[2019-08-17] MEDS: SODIUM CHLORIDE 0.9% 1,000 ML IV SCH ×2 (04:46→19:59)
[2019-08-17 07:08] LABS: Basophils # (A) 0.1 k/uL (0-0.2); Basophils % (A) 1 %; Eosinophils # (A) 0.1 k/uL (0-0.7); Eosinophils % (A) 1 %; HCT 33.1 % (34.0-46.0); Lymphocytes # (A) 0.6 k/uL (1.0-4.8); Lymphocytes % (A) 5 %; MCH 28.2 pg (25.0-35.0); MCHC 33.2 g/dL (31.0-37.0); MCV 85.1 fL (80.0-100.0); Mean Platelet Volume 6.8; Monocytes # (A) 0.6 k/uL (0-1.0); Monocytes % (A) 5 %; Neutrophils # (A) 10.2 k/uL (1.3-7.7); Neutrophils % (A) 87 %; Platelet Count 274 k/uL (150-450); RBC 3.89 m/uL (3.80-5.40); RDW 13.2 % (11.5-15.5); WBC 11.8 k/uL (3.8-10.6)
[2019-08-17 07:19] LABS: Albumin 2.5 g/dL (3.5-5.0); Calcium 7.7 mg/dL (8.4-10.2); Magnesium 1.9 mg/dL (1.6-2.3); Potassium 3.8 mmol/L (3.5-5.1); Total Bilirubin 0.7 mg/dL (0.2-1.3); Total Protein 5.8 g/dL (6.3-8.2)
[2019-08-17] MEDS: ONDANSETRON 4 MG/2 ML VIAL IVP PRN ×2 (08:39→16:49)
[2019-08-17] MEDS: ACETAMINOPHEN TAB 325 MG TAB PO PRN ×2 (08:41→20:03)
[2019-08-17] MEDS: HYDROcodone/APAP 5-325MG 1 EACH TAB PO PRN (13:22)
--- NOTE | 2019-08-17 13:52 | P.PN ---
Subjective 24-year-old cousin female was admitted secondary to pyelonephritis severe sepsis from urinary tract infection.patient is feeling marginally better still has a CVA pain and tenderness did throw up had bilious emesis today. Her creatinine started improving and is 1.5 continue with IV fluids ultrasound of the kidney did not show any chronic kidney disease.patient had a fever yesterday and today morning Constitutional: as mentioned above Cardio vascular: denied any chest pain, palpitations Gastrointestinal as mentioned above Pulmonary: Denied any shortness of breath cough Neurologic denied any new focal deficits All inpatient medications were reviewed and appropriate changes in these medications as dictated in the interval history and assessment and plan. Objective - Vital Signs Vital signs: Vital Signs Temp 99.2 F 08/17/19 13:15 Pulse 125 H 08/17/19 13:15 Resp 18 08/17/19 13:15 BP 106/74 08/17/19 13:15 Pulse Ox 95 08/17/19 09:15 Intake & Output 08/16/19 08/17/19 08/17/19 18:59 06:59 18:59 Intake Total 240 Output Total 1301 1830 1 Balance -1301 -1830 239 Intake: Oral 240 Output: Urine 1300 1830 Emesis 1 1 Other: Voiding Method Toilet Toilet Toilet # Voids 1 - Exam PHYSICAL EXAMINATION: GENERAL: The patient is alert and oriented x3, not in any acute distress. Well developed, well nourished. HEENT: Pupils are round and equally reacting to light. EOMI. No scleral icterus. No conjunctival pallor. Normocephalic, atraumatic. No pharyngeal erythema. No thyromegaly. CARDIOVASCULAR: S1 and S2 present. No murmurs, rubs, or gallops. PULMONARY: Chest is clear to auscultation, no wheezing or crackles. ABDOMEN: She does have tenderness in both the CVA areas including suprapubic tenderness MUSCULOSKELETAL: No joint swelling or deformity. EXTREMITIES: No cyanosis, clubbing, or pedal edema. NEUROLOGICAL: Gross neurological examination did not reveal any focal deficits. SKIN: No rashes. - Labs CBC & Chem 7: 08/17/19 06:37 08/17/19 06:37 Labs: Abnormal Lab Results - Last 24 Hours (Table) 08/17/19 08/17/19 Range/Units 06:37 06:37 WBC 11.8 H (3.8-10.6) k/uL Hgb 11.0 L (11.4-16.0) gm/dL Hct 33.1 L (34.0-46.0) % Neutrophils # 10.2 H (1.3-7.7) k/uL Lymphocytes # 0.6 L (1.0-4.8) k/uL Sodium 136 L (137-145) mmol/L Carbon Dioxide 20 L (22-30) mmol/L Creatinine 1.43 H (0.52-1.04) mg/dL Calcium 7.7 L (8.4-10.2) mg/dL Total Protein 5.8 L (6.3-8.2) g/dL Albumin 2.5 L (3.5-5.0) g/dL Microbiology - Last 24 Hours (Table) 08/15/19 22:40 Blood Culture - Preliminary Blood No Growth after 24 hours 08/15/19 21:55 Urine Culture - Preliminary Urine,Clean Catch Assessment and Plan Plan: - severe sepsis secondary to urinary tract infection, pyelonephritis: Continue with Rocephin it's. -Hypovolemic hyponatremia IV fluids as mentioned above -Acute renal failure possibility of prerenal azotemia continue with IV fluids and the and is said may be contributing to her renal dysfunction as well nephrology evaluated the patient and patient's creatinine started improving -Leukocytosis secondary to sepsis as mentioned above, improving now -Tachycardia secondary to sepsis and fever, tachycardia resolved -Asthma without any acute exacerbation
--- NOTE | 2019-08-17 15:51 | XR ---
EXAMINATION TYPE: XR chest 2V DATE OF EXAM: 08/17/2019 COMPARISON: 08/21/2017 HISTORY: Chest pain TECHNIQUE: Frontal and lateral views of the chest are obtained. FINDINGS: Patchy perihilar and basilar infiltrates. Correlate for pneumonia. Small effusions also suggested. Fo llow-up until resolution advised. No evidence for pneumothorax. The cardiac silhouette size is within normal limits. The osseous structures are grossly intact. IMPRESSION: 1. Patchy perihilar and basilar infiltrates. Correlate for pneumonia. Small effusions also suggested . Follow-up until resolution advised.
[2019-08-17] MEDS: IPRATROPIUM-ALBUTEROL 3 ML NEB INHALATION PRN ×2 (17:59→23:17)
[2019-08-17] MEDS: AZITHROMYCIN 500 MG in SODIUM CHLORIDE 0.9% 250 ML IVPB SCH (19:59)
[2019-08-18] MEDS ORDERED: ACETAMINOPHEN IV (For NPO) 1,000 MG in EMPTY BAG 1 BAG IVPB ONE (01:00)
[2019-08-18 01:58] LABS: Basophils # (A) 0.1 k/uL (0-0.2); Basophils % (A) 1 %; Eosinophils % (A) 0 %; HCT 35.9 % (34.0-46.0); HGB 11.2 gm/dL (11.4-16.0); Lymphocytes # (A) 1.1 k/uL (1.0-4.8); Lymphocytes % (A) 10 %; MCH 27.7 pg (25.0-35.0); MCHC 31.3 g/dL (31.0-37.0); MCV 88.6 fL (80.0-100.0); Mean Platelet Volume 6.7; Monocytes # (A) 0.6 k/uL (0-1.0); Monocytes % (A) 5 %; Neutrophils # (A) 8.6 k/uL (1.3-7.7); Neutrophils % (A) 79 %; Platelet Count 296 k/uL (150-450); RBC 4.05 m/uL (3.80-5.40); RDW 13.9 % (11.5-15.5); WBC 10.8 k/uL (3.8-10.6)
[2019-08-18 02:06] LABS: Potassium 3.3 mmol/L (3.5-5.1)
[2019-08-18 02:08] LABS: D-Dimer 4.34 mg/L FEU (<0.60); Prothrombin Time 10.4 sec (9.0-12.0)
--- NOTE | 2019-08-18 02:12 | XR ---
EXAMINATION TYPE: XR chest 1V portable DATE OF EXAM: 08/18/2019 COMPARISON: 08/17/2019 HISTORY: Short of breath TECHNIQUE: Single frontal view of the chest is obtained. FINDINGS: There is pulmonary interstitial and alveolar edema. Heart is probably enlarged. Bony thora x is intact. IMPRESSION: There is pulmonary edema that appears the same or slightly worse than yesterday. No pleural fluid seen.
[2019-08-18] MEDS: ONDANSETRON 4 MG/2 ML VIAL IVP PRN (03:18)
--- NOTE | 2019-08-18 03:53 | CT ---
EXAMINATION TYPE: CT chest angio for PE DATE OF EXAM: 08/18/2019 COMPARISON: None HISTORY: R/O PE CT DLP: 483.10 mGycm Automated exposure control for dose reduction was used. CONTRAST: CT Chest for pulmonary embolism performed with with IV Contrast, patient injected with 45 mL of Isovu e 370. There are 3-D post processed images. FINDINGS: There is patchy airspace infiltrates throughout the upper and lower lobes. There are small pleural ef fusions. There is no pericardial effusion. I see no filling defects in the pulmonary arteries. There is no mediastinal adenopathy. There are no hilar masses. The bony thorax is intact. Thoracic spine is intact. Thoracic aorta is intact without evidence of aneurysm or dissection. IMPRESSION: Moderately severe bilateral pulmonary airspace infiltrates consistent with pulmonary edema. No eviden ce of pulmonary embolism.
[2019-08-18 04:18] LABS: Glucose,Whole Blood 81 mg/dL (75-99)
[2019-08-18 05:57] LABS: HCT 32.7 % (34.0-46.0); HGB 10.4 gm/dL (11.4-16.0); Hypochromasia Slight; MCH 28.7 pg (25.0-35.0); MCHC 31.7 g/dL (31.0-37.0); MCV 90.7 fL (80.0-100.0); Platelet Count 249 k/uL (150-450); RBC 3.61 m/uL (3.80-5.40); WBC 8.3 k/uL (3.8-10.6)
[2019-08-18 06:35] LABS: Albumin 2.3 g/dL (3.5-5.0); Calcium 7.7 mg/dL (8.4-10.2); Potassium 3.2 mmol/L (3.5-5.1); Total Bilirubin 0.5 mg/dL (0.2-1.3); Total Protein 5.6 g/dL (6.3-8.2)
[2019-08-18] MEDS ORDERED: Potassium Replacement Protocol 1 EACH MISC MISCELLANE PRN (06:50)
[2019-08-18] MEDS: POTASSIUM BICARBONATE/CIT AC 20 MEQ TABLET.EFF NG-TUBE SCH ×2 (07:05→09:13)
[2019-08-18 08:10] LABS: Lymphocytes # (M) 1.41 k/uL (1.0-4.8); Monocytes # (M) 0.58 k/uL (0-1.0); Neutrophils % (M) 76 %; Nucleated Red Blood Cells 0 /100 WBC (0-0); Total Cells Counted 100
[2019-08-18] MEDS ORDERED: FUROSEMIDE 10 MG/ML 4 ML VIAL IV STA (08:22)
[2019-08-18] MEDS: SODIUM CHLORIDE 0.9% 1,000 ML IV SCH ×3 (09:14→09:21)
[2019-08-18] MEDS ORDERED: ONDANSETRON 4 MG/2 ML VIAL IVP PRN (10:03)
[2019-08-18] MEDS: methylPREDNISolone SOD SUCCI 40 MG/ML 1 ML VIAL IV SCH ×2 (11:12→17:14)
[2019-08-18] MEDS ORDERED: FUROSEMIDE 10 MG/ML 4 ML VIAL IV ONE (12:00)
[2019-08-18 12:21] LABS: Glucose,Whole Blood 66 mg/dL (75-99)
[2019-08-18 12:37] LABS: Glucose,Whole Blood 79 mg/dL (75-99)
[2019-08-18] MEDS: IPRATROPIUM-ALBUTEROL 3 ML NEB INHALATION SCH ×3 (12:37→21:02)
--- NOTE | 2019-08-18 12:45 | P.CNPUL ---
History of Present Illness Consult date: 08/18/19 Requesting physician: Adam Shepherd Reason for consult: other (Sepsis) Chief complaint: Nausea vomiting diarrhea fever and chills and bilateral flank pain. History of present illness: This is a 24-year-old female with history of mild intermittent asthma, nonsmoker, no previous significant medical history otherwise. Patient presented to the ER on 08/15/2019 with 5 days history of multiple constitutional symptoms and the GI symptoms as well as bilateral flank pain. Patient came in with n ausea vomiting, diarrhea, fever and chills, generalized body aches, neck pain, headache, suprapubic discomfort and some dysuria. Patient took ibuprofen with minimal relief of her symptoms. Continued to do poorly over a period of 5 days, hence the patient presented to the ER with all these complaints. Her workup included a CT of the abdomen and pelvis, and it showed a diffuse swelling of the entire right kidney with perinephric edema and periureteral edema felt to be most likely related to severe pyelonephritis. No evidence of nephrolithiasis or ureterolithiasis. No evidence of retroperitoneal adenopathy. There was evidence of a small umbilical hernia. Renal ultrasound showed no evidence of hydronephrosis. No evidence of nephrolithiasis and no masses were identified. Patient was also noted to have acute kidney injury with abnormal BUN and creatinine. And she was seen by nephrology on consultation. Patient was admitted with the impression of urinary tract infection and severe sepsis. She was also noted to have hypovolemic hyponatremia treated mostly with IV fluids. Since admission, the patient has been feeling better, however she developed significant worsening of her pulmonary status and significant interstitial edema anddisease in both lungs. The differential diagnosis for this includes fluid overload or possibly early ARDS. Patient had a CT of the chest to look into the possibility of pulmonary embolism. It was negative for pulmonary embolism, but it did show moderate severe bilateral pulmonary airspace infiltrates consistent with pulmonary edema. Again this could be related to fluid overload or could be noncardiogenic in nature./ARDS. Patient was transferred to the ICU and I was asked to see her on consultation. Since transfer to the ICU, the patient received Lasix twice, responded well with significant urine output, and the patient is feeling better after diuresis. She is presently on 6 L high flow nasal cannula, and O2 saturation is in the high 90s. Patient does have history of underlying asthma she has occasional cough and wheezing, and today I recommended bronchodilators in the form of DuoNeb, I also recommended Solu- Medrol IV push every 8 hours. Review of Systems CONSTITUTIONAL: Multiple constitutional symptoms prior to admission including headaches, neck pain, nausea vomiting diarrhea and flank pain. Fever and chills. HEENT: Denies any blurred vision, denies any sore throat, she did have headache on presentation, and she had neck pain at the base of the neck. CARDIOVASCULAR: Denies any palpitations, no syncope, no orthopnea. PULMONARY: As noted in HPI. GASTROINTESTINAL: As noted in HPI. Her GI symptoms have significantly improved, continues to have some periumbilical discomfort. NEUROLOGICAL: Headache on admission has resolved. No weakness, no ataxia, no double vision, no blurred vision. HEMATOLOGICAL: Denies any bleeding or petechiae. GENITOURINARY: Denied any burning sensation on urination, she had minimal dysuria, she had mostly right flank pain and minimal left flank pain MUSCULOSKELETAL/RHEUMATOLOGICAL: Denies any joint pain, swelling, or any muscle pain. Had mostly neck pain at the base of the neck posteriorly. ENDOCRINE: Denies any heat or cold intolerance. Denies any symptoms to suggest diabetes Past Medical History Past Medical History: Asthma History of Any Multi-Drug Resistant Organisms: None Reported Past Surgical History: No Surgical Hx Reported Past Anesthesia/Blood Transfusion Reactions: No Reported Reaction Past Psychological History: No Psychological Hx Reported Smoking Status: Never smoker Past Alcohol Use History: Occasional Past Drug Use History: None Reported Additional Drug Use History / Comment(s): Smokes occasionally - Past Family History Mother Family Medical History: No Reported History Medications and Allergies Home Medications Medication Instructions Recorded Confirmed Type Ibuprofen [Motrin Ib] 200 mg PO Q6H PRN 08/16/19 08/16/19 History Allergies Allergy/AdvReac Type Severity Reaction Status Date / Time benzoyl peroxide Allergy Intermediate Swelling Verified 08/16/19 07:55 Physical Exam Vitals: Vital Signs Temp Pulse Pulse Resp BP BP BP 08/18/19 10:00 130 H 24 125/86 08/18/19 08:00 98.7 F 108 H 27 H 103/78 08/18/19 05:00 113 H 27 H 137/87 08/18/19 04:00 98.7 F 117 H 22 138/89 08/18/19 03:54 120 H 21 08/18/19 03:25 99.4 F 128 H 22 118/65 08/18/19 01:20 100.5 F H 134 H 24 125/80 08/18/19 01:08 124 H 08/18/19 00:00 124 H 08/17/19 23:54 100.5 F H 08/17/19 23:45 137 H 22 08/17/19 23:35 08/17/19 23:30 136 H 08/17/19 23:17 140 H 08/17/19 23:00 99.7 F H 129 H 22 110/71 08/17/19 22:00 100.0 F H 08/17/19 21:15 101.0 F H 08/17/19 19:20 102.2 F H 60 22 126/83 08/17/19 18:30 115 H 24 08/17/19 18:11 116 H 08/17/19 18:00 124 H 08/17/19 16:10 98.7 F 108 H 18 105/71 08/17/19 15:59 116 H 24 08/17/19 14:44 24 08/17/19 13:15 99.2 F 125 H 18 106/74 Pulse Ox 08/18/19 10:00 98 08/18/19 08:00 99 08/18/19 05:00 97 08/18/19 04:00 94 L 08/18/19 03:54 08/18/19 03:25 96 08/18/19 01:20 89 L 08/18/19 01:08 96 08/18/19 00:00 08/17/19 23:54 08/17/19 23:45 97 08/17/19 23:35 80 L 08/17/19 23:30 08/17/19 23:17 08/17/19 23:00 91 L 08/17/19 22:00 08/17/19 21:15 08/17/19 19:20 08/17/19 18:30 08/17/19 18:11 08/17/19 18:00 08/17/19 16:10 94 L 08/17/19 15:59 08/17/19 14:44 08/17/19 13:15 Intake and Output 08/17/19 08/18/19 08/18/19 22:59 06:59 14:59 Intake Total 260 Output Total 450 750 Balance -450 -490 Intake: IV 20 Sodium Chloride 0.9% 1, 20 000 ml @ 100 mls/hr IV . Q10H [facility] Rx#:[id number] Oral 240 Output: Urine 450 750 Other: Voiding Method Toilet Toilet Bedside Commode # Voids 1 Physical Exam: Revealed a 24-year-old female in no distress, on 6 L high flow nasal cannula. Head: Atraumatic, normocephalic. HEENT:[Neck is supple.] [No neck masses.] [No thyromegaly.] [No JVD.] PERRLA, EOMI, no icterus. Chest: [Crackles at the bases, rhonchi on forced expiratory maneuver noted. Symmetrical chest expansion. Cardiac Exam: [Normal S1 and S2, no S3 gallop, no murmur.] Abdomen: Obese, [Soft, nontender, no megaly, no rebound, no guarding, normal bowel sounds. Minimal tenderness in the periumbilical area noted.] Extremities: [No clubbing, no edema, no cyanosis. Good pulses bilaterally.] Neurological Exam: [No focal neurologic deficit.] Alert and oriented 3. Psychiatric: Normal mood, affect and normal mental status examination. Skin: No rashes. Lymphatics: No lymphadenopathy. Results - Laboratory Findings CBC and BMP: 08/18/19 05:17 08/18/19 05:21 PT/INR, D-dimer PT 10.4 sec (9.0-12.0) 08/18/19 01:42 INR 1.0 (<1.2) 08/18/19 01:42 D-Dimer 4.34 mg/L FEU (<0.60) H 08/18/19 01:42 Abnormal lab findings: Abnormal Labs 08/15/19 08/15/19 08/15/19 20:32 20:32 21:55 WBC 21.0 H RBC 3.79 L Hgb 11.1 L Hct 31.1 L Neutrophils # 18.6 H Lymphocytes # 0.8 L Monocytes # 1.1 H D-Dimer Sodium 132 L Potassium Chloride 97 L Carbon Dioxide BUN 20 H Creatinine 1.91 H Glucose 139 H POC Glucose (mg/dL) Calcium 8.2 L Total Protein Albumin 3.2 L Urine Appearance Cloudy H Urine Protein 1+ H Urine Blood Small H Ur Leukocyte Esterase Moderate H Urine WBC 16 H Urine Mucus Rare H 08/17/19 08/17/19 08/18/19 06:37 06:37 01:42 WBC 11.8 H 10.8 H RBC Hgb 11.0 L 11.2 L Hct 33.1 L Neutrophils # 10.2 H 8.6 H Lymphocytes # 0.6 L Monocytes # D-Dimer Sodium 136 L Potassium Chloride Carbon Dioxide 20 L BUN Creatinine 1.43 H Glucose POC Glucose (mg/dL) Calcium 7.7 L Total Protein 5.8 L Albumin 2.5 L Urine Appearance Urine Protein Urine Blood Ur Leukocyte Esterase Urine WBC Urine Mucus 08/18/19 08/18/19 08/18/19 01:42 01:42 05:17 WBC RBC 3.61 L Hgb 10.4 L Hct 32.7 L Neutrophils # Lymphocytes # Monocytes # D-Dimer 4.34 H Sodium 134 L Potassium 3.3 L Chloride Carbon Dioxide BUN Creatinine 1.35 H Glucose POC Glucose (mg/dL) Calcium 8.0 L Total Protein Albumin Urine Appearance Urine Protein Urine Blood Ur Leukocyte Esterase Urine WBC Urine Mucus 08/18/19 08/18/19 05:21 12:09 WBC RBC Hgb Hct Neutrophils # Lymphocytes # Monocytes # D-Dimer Sodium 135 L Potassium 3.2 L Chloride Carbon Dioxide 19 L BUN Creatinine 1.23 H Glucose 124 H POC Glucose (mg/dL) 66 L Calcium 7.7 L Total Protein 5.6 L Albumin 2.3 L Urine Appearance Urine Protein Urine Blood Ur Leukocyte Esterase Urine WBC Urine Mucus - Diagnostic Findings Chest x-ray: image reviewed (As noted in HPI.) Additional studies: CT of the abdomen and pelvis was reviewed and as noted in HPI. Assessment and Plan Assessment: Impression: 1 acute sepsis secondary to urinary tract infection, suspect pyelonephritis. Mostly based on the findings of the CT of the abdomen and pelvis. No evidence of hydronephrosis. And no evidence of nephrolithiasis. 2 acute pulmonary edema secondary to fluid overload, although the possibility of early ARDS is not entirely ruled out, but felt to be less likely since the patient responded well to diuretics earlier today. However the patient needs to be monitored closely and repeat chest x-ray in a.m. after a good course of diuresis. 3 acute kidney injury secondary to sepsis and urinary tract infection, renal functioning seems to be improving. 4 acute exacerbation of mild intermittent asthma, presently on bronchodilators, and Solu-Medrol was added. Recommendation: Patient will be kept in the ICU, continue present antibiotics, urinary cultures are nondiagnostic so far, however clinically the patient seems to be improving. CT of the chest was reviewed. Chest x-ray was reviewed. Agree with diuretics. Need to monitor her renal profile closely. And fluid status closely. Prognosis is relatively guarded. We'll continue to follow. Repeat chest x-ray in a.m. Time with Patient: Greater than 30
--- NOTE | 2019-08-18 13:08 | P.PN ---
Subjective 24-year-old cousin female was admitted secondary to pyelonephritis severe sepsis from urinary tract infection.patient is feeling marginally better still has a CVA pain and tenderness did throw up had bilious emesis today. Her creatinine started improving and is 1.5 continue with IV fluids ultrasound of the kidney did not show any chronic kidney disease.patient had a fever yesterday and today morning 08/18/2019 patient's overall condition has worsened yesterday. Patient went into respiratory failure requiring high amounts of oxygen because of the chest x-ray was opted which showed diffuse pulmonary edema probably acute lung injury. Late r patient ended up getting a CAT scan of the chest to rule out pulmonary embolism there is no peripheral embolism. Patient had some infiltrate with air bronchogram but my suspicion is low for pneumonia. Patient was started on systemic steroids for acute lung injury was given as needed Lasix creatinine improved started getting worse now awake and because of the Lasix which will only be ordered on as-needed basis. Constitutional: as mentioned above Cardio vascular: denied any chest pain, palpitations Gastrointestinal as mentioned above Pulmonary: Denied any shortness of breath cough Neurologic denied any new focal deficits All inpatient medications were reviewed and appropriate changes in these medications as dictated in the interval history and assessment and plan. Objective - Vital Signs Vital signs: Vital Signs Temp 98.7 F 08/18/19 08:00 Pulse 130 H 08/18/19 10:00 Resp 24 08/18/19 10:00 BP 125/86 08/18/19 10:00 Pulse Ox 98 08/18/19 10:00 Intake & Output 08/17/19 08/18/19 08/18/19 18:59 06:59 18:59 Intake Total 1040 260 Output Total 401 1200 Balance 639 -940 Intake: IV 20 Sodium Chloride 0.9% 1, 20 000 ml @ 100 mls/hr IV . Q10H [facility] Rx#:[id number] Oral 1040 240 Output: Urine 400 1200 Emesis 1 Other: Voiding Method Toilet Toilet Bedside Commode # Voids 1 - Exam PHYSICAL EXAMINATION: GENERAL: The patient is alert and oriented x3, not in any acute distress. Well developed, well nourished. HEENT: Pupils are round and equally reacting to light. EOMI. No scleral icterus. No conjunctival pallor. Normocephalic, atraumatic. No pharyngeal erythema. No thyromegaly. CARDIOVASCULAR: S1 and S2 present. No murmurs, rubs, or gallops. PULMONARY: Diffuse bilateral posterior bibasilar crackles ABDOMEN: She does have tenderness in both the CVA areas including suprapubic tenderness MUSCULOSKELETAL: No joint swelling or deformity. EXTREMITIES: No cyanosis, clubbing, or pedal edema. NEUROLOGICAL: Gross neurological examination did not reveal any focal deficits. SKIN: No rashes. - Labs CBC & Chem 7: 08/18/19 05:17 08/18/19 05:21 Labs: Abnormal Lab Results - Last 24 Hours (Table) 08/18/19 08/18/19 08/18/19 Range/Units 01:42 01:42 01:42 WBC 10.8 H (3.8-10.6) k/uL RBC (3.80-5.40) m/uL Hgb 11.2 L (11.4-16.0) gm/dL Hct (34.0-46.0) % Neutrophils # 8.6 H (1.3-7.7) k/uL D-Dimer 4.34 H (<0.60) mg/L FEU Sodium 134 L (137-145) mmol/L Potassium 3.3 L (3.5-5.1) mmol/L Carbon Dioxide (22-30) mmol/L Creatinine 1.35 H (0.52-1.04) mg/dL Glucose (74-99) mg/dL POC Glucose (mg/dL) (75-99) mg/dL Calcium 8.0 L (8.4-10.2) mg/dL Total Protein (6.3-8.2) g/dL Albumin (3.5-5.0) g/dL 08/18/19 08/18/19 08/18/19 Range/Units 05:17 05:21 12:09 WBC (3.8-10.6) k/uL RBC 3.61 L (3.80-5.40) m/uL Hgb 10.4 L (11.4-16.0) gm/dL Hct 32.7 L (34.0-46.0) % Neutrophils # (1.3-7.7) k/uL D-Dimer (<0.60) mg/L FEU Sodium 135 L (137-145) mmol/L Potassium 3.2 L (3.5-5.1) mmol/L Carbon Dioxide 19 L (22-30) mmol/L Creatinine 1.23 H (0.52-1.04) mg/dL Glucose 124 H (74-99) mg/dL POC Glucose (mg/dL) 66 L (75-99) mg/dL Calcium 7.7 L (8.4-10.2) mg/dL Total Protein 5.6 L (6.3-8.2) g/dL Albumin 2.3 L (3.5-5.0) g/dL Microbiology - Last 24 Hours (Table) 08/15/19 22:40 Blood Culture - Preliminary Blood No Growth after 48 hours 08/15/19 21:55 Urine Culture - Final Urine,Clean Catch Assessment and Plan Plan: - severe sepsis secondary to urinary tract infection, pyelonephritis: Continue with Rocephin it's. Although suspicion is low because of a minimal bronchogram on the CAT scan I ended up ordering azithromycin as well. -Acute hypoxic respiratory failure: Secondary to possible acute lung injury, patient is on systemic steroids for that. -Hypovolemic hyponatremia improved with IV fluids presently receiving Lasix because of pulmonary edema which is mostly secondary to acute lung injury rather than heart failure. -Acute renal failure possibility of prerenal azotemia, presently receiving Lasix because of acute respiratory failure -Leukocytosis secondary to sepsis as mentioned above, improving now -Tachycardia secondary to sepsis, and presently now secondary to hypoxemia -Asthma without any acute exacerbation
[2019-08-18] MEDS: HYDROcodone/APAP 5-325MG 1 EACH TAB PO PRN (14:04)
[2019-08-18] MEDS: AZITHROMYCIN 500 MG in SODIUM CHLORIDE 0.9% 250 ML IVPB SCH (18:23)
[2019-08-18 18:41] LABS: Magnesium 1.9 mg/dL (1.6-2.3)
[2019-08-18 18:42] LABS: Potassium 5.5 mmol/L (3.5-5.1)
[2019-08-18 19:49] LABS: Calcium 8.2 mg/dL (8.4-10.2); Potassium 4.3 mmol/L (3.5-5.1)
--- NOTE | 2019-08-18 19:59 | PN ---
PROGRESS NOTE Patient is seen for followup for acute kidney injury. She was admitted with pyelonephritis and acute kidney injury. Patient is maintained on antibiotics. Her urine culture did not grow any organism; however, patient was maintained on IV fluids. She became short of breath and was transferred to the ICU. Her creatinine has decreased from 1.9 on initial admission to 1.2 now. Patient received a dose of IV Lasix this morning. She has diuresed very well from it. IV fluids are now held. Heart rate has been slightly on the higher side. It has been sinus tachycardia. No fever. No abdominal pain, nausea or vomiting. On examination this morning, blood pressure was 103/78, heart rate 108 per minute. Patient is afebrile. EXAMINATION OF THE HEART: S1 and S2. EXAMINATION OF LUNGS: Bilateral breath sounds are heard. Bilateral crackles are heard. ABDOMEN: Soft, non-tender. Examination of lower extremities shows no significant edema. [employer] exam is grossly intact. Labs show sodium 135, potassium 3.2, BUN 10, serum creatinine 1.23, hemoglobin 10.4 g/dL. ASSESSMENT: 1. Acute kidney injury, prerenal, currently improving. 2. Urinary tract infection. Urine culture has not grown any specific bacteria. Patient's UA was also not too remarkable. She had [address] scan of the abdomen showed evidence of swelling in the right kidney with perinephric edema. I will continue with the empiric antibiotics for now. 3. Hypokalemia secondary to decreased intake and diuresis. We will replace. Check magnesium levels as well. 4. Volume overload. Repeat another dose of IV Lasix at noon. Replace potassium. Repeat electrolytes and check magnesium as well. 5. Sinus tachycardia, most likely associated with volume overload. Expect improvement with improved volume status. PLAN: Repeat Lasix. Discontinue IV fluids. Repeat labs in a.m. MMODL / IJN: [id number] /
[2019-08-19] MEDS: methylPREDNISolone SOD SUCCI 40 MG/ML 1 ML VIAL IV SCH ×2 (00:13→08:36)
[2019-08-19] MEDS: AZITHROMYCIN 500 MG in SODIUM CHLORIDE 0.9% 250 ML IVPB SCH ×2 (00:13→19:08)
[2019-08-19] MEDS: HYDROcodone/APAP 5-325MG 1 EACH TAB PO PRN ×2 (01:31→20:54)
[2019-08-19] MEDS: IPRATROPIUM-ALBUTEROL 3 ML NEB INHALATION SCH ×4 (07:14→19:07)
--- NOTE | 2019-08-19 10:54 | XR ---
EXAMINATION TYPE: XR chest 1V portable DATE OF EXAM: 08/19/2019 COMPARISON: 08/18/2019 HISTORY: Shortness of breath TECHNIQUE: Single frontal view of the chest is obtained. FINDINGS: There is a persistent interstitial pattern which is improved relative to the prior exam. T iny bilateral effusion suspected. There is reduced inspiration. Heart size stable. No pneumothorax IMPRESSION: Improving diffuse interstitial pattern suggestive of improving CHF or pneumonia.
[2019-08-19] MEDS ORDERED: FUROSEMIDE 10 MG/ML 2 ML VIAL IV STA (11:31)
--- NOTE | 2019-08-19 12:17 | P.PN ---
Subjective Progress Note Date: 08/19/19 Principal diagnosis: Acute pyelonephritis and sepsis. This is a 24-year-old female with history of mild intermittent asthma, nonsmoker, no previous significant medical history otherwise. Patient presented to the ER on 08/15/2019 with 5 days history of multiple constitutional symptoms and the GI symptoms as well as bilateral flank pain. Patient came in with nausea vomiting, diarrhea, fever and chills, generalized body aches, neck pain, headache, suprapubic discomfort and some dysuria. Patient took ibuprofen with minimal relief of her symptoms. Continued to do poorly over a period of 5 days, hence the patient presented to the ER with all these complaints. Her workup in cluded a CT of the abdomen and pelvis, and it showed a diffuse swelling of the entire right kidney with perinephric edema and periureteral edema felt to be most likely related to severe pyelonephritis. No evidence of nephrolithiasis or ureterolithiasis. No evidence of retroperitoneal adenopathy. There was evidence of a small umbilical hernia. Renal ultrasound showed no evidence of hydronephrosis. No evidence of nephrolithiasis and no masses were identified. Patient was also noted to have acute kidney injury with abnormal BUN and creatinine. And she was seen by nephrology on consultation. Patient was admitted with the impression of urinary tract infection and severe sepsis. She was also noted to have hypovolemic hyponatremia treated mostly with IV fluids. Since admission, the patient has been feeling better, however she developed significant worsening of her pulmonary status and significant interstitial edema anddisease in both lungs. The differential diagnosis for this includes fluid overload or possibly early ARDS. Patient had a CT of the chest to look into the possibility of pulmonary embolism. It was negative for pulmonary embolism, but it did show moderate severe bilateral pulmonary airspace infiltrates consistent with pulmonary edema. Again this could be related to fluid overload or could be noncardiogenic in nature./ARDS. Patient was transferred to the ICU and I was asked to see her on consultation. Since transfer to the ICU, the patient received Lasix twice, responded well with significant urine output, and the patient is feeling better after diuresis. She is presently on 6 L high flow nasal cannula, and O2 saturation is in the high 90s. Patient does have history of underlying asthma she has occasional cough and wheezing, and today I recommended bronchodilators in the form of DuoNeb, I also recommended Solu- Medrol IV push every 8 hours. Reevaluated today on 09/15/2019, patient is feeling much better, breathing a lot easier, chest x-ray showed significant improvement. Patient remains empirically on antibiotics. Denies any shortness of breath no cough no wheezing. No fever no chills no hemoptysis no chest pain. No dysuria frequency or urgency. Blood cultures remain negative, urine culture is noted. Hughes to be more of a contamination. Objective - Vital Signs Vital signs: Vital Signs Temp 97.7 F 08/19/19 08:00 Pulse 88 08/19/19 10:54 Resp 23 08/19/19 08:00 BP 116/84 08/19/19 08:00 Pulse Ox 99 08/19/19 08:00 Intake & Output 08/18/19 08/19/19 08/19/19 18:59 06:59 18:59 Intake Total 250 400 Output Total 4250 800 700 Balance -4000 -400 -700 Weight 86 kg Intake: IV 250 Azithromycin 500 mg In 250 Sodium Chloride 0.9% 250 ml @ 250 mls/hr IVPB DAILY@1800 [facility] Rx#: [id number] Intake, IV Titration 50 Amount cefTRIAXone 1 gm In 50 Sodium Chloride 0.9% 50 ml @ 100 mls/hr IVPB Q24H [facility] Rx#:[id number] Oral 350 Output: Urine 4250 800 700 Other: Voiding Method Bedside Commode Bedside Commode Bedside Commode - Exam Physical Exam: Revealed a 24-year-old female in no distress, on 3 L nasal cannula, O2 saturation is 99%. Head: Atraumatic, normocephalic. HEENT:[Neck is supple.] [No neck masses.] [No thyromegaly.] [No JVD.] PERRLA, EOMI, no icterus. Chest: [Clear throughout no crackles or rhonchi or wheezes. Cardiac Exam: [Normal S1 and S2, no S3 gallop, no murmur.] Abdomen: Obese, [Soft, nontender, no megaly, no rebound, no guarding, normal bowel sounds. Minimal tenderness in the periumbilical area noted.] Extremities: [No clubbing, no edema, no cyanosis. Good pulses bilaterally.] Neurological Exam: [No focal neurologic deficit.] Alert and oriented 3. Psychiatric: Normal mood, affect and normal mental status examination. Skin: No rashes. Lymphatics: No lymphadenopathy. - Labs CBC & Chem 7: 08/18/19 05:17 08/18/19 19:16 Labs: Abnormal Lab Results - Last 24 Hours (Table) 08/18/19 08/18/19 08/18/19 Range/Units 12:09 18:16 19:16 Potassium 5.5 H (3.5-5.1) mmol/L Creatinine 1.26 H (0.52-1.04) mg/dL Glucose 174 H (74-99) mg/dL POC Glucose (mg/dL) 66 L (75-99) mg/dL Calcium 8.2 L (8.4-10.2) mg/dL Microbiology - Last 24 Hours (Table) 08/15/19 22:40 Blood Culture - Preliminary Blood No Growth after 72 hours Assessment and Plan Assessment: Impression: 1 acute sepsis secondary to urinary tract infection, suspect pyelonephritis. Mostly based on the findings of the CT of the abdomen and pelvis. No evidence of hydronephrosis. And no evidence of nephrolithiasis. 2 acute pulmonary edema secondary to fluid overload, resolved with diuretics. 3 acute kidney injury secondary to sepsis and urinary tract infection, renal functioning continues to improve, creatinine today is 1.26. Patient did receive CT of the chest with contrast which may be another contributing factor to her acute kidney injury. 4 acute exacerbation of mild intermittent asthma, presently on bronchodilators, and Solu-Medrol was added. Will switch to Medrol Dosepak. Recommendation: Continue present treatment plan as the admitting physician, patient could be transferred to a regular medical floor, will continue to follow. Time with Patient: Less than 30
[2019-08-19 12:28] LABS: HCT 33.9 % (34.0-46.0); HGB 10.9 gm/dL (11.4-16.0); MCH 28.6 pg (25.0-35.0); MCHC 32.2 g/dL (31.0-37.0); Mean Platelet Volume 6.6; Platelet Count 387 k/uL (150-450); RBC 3.81 m/uL (3.80-5.40); RDW 14.2 % (11.5-15.5); WBC 15.8 k/uL (3.8-10.6)
[2019-08-19 12:50] LABS: Calcium 8.6 mg/dL (8.4-10.2)
--- NOTE | 2019-08-19 13:32 | P.PN ---
Subjective 24-year-old cousin female was admitted secondary to pyelonephritis severe sepsis from urinary tract infection.patient is feeling marginally better still has a CVA pain and tenderness did throw up had bilious emesis today. Her creatinine started improving and is 1.5 continue with IV fluids ultrasound of the kidney did not show any chronic kidney disease.patient had a fever yesterday and today morning 08/18/2019 patient's overall condition has worsened yesterday. Patient went into respiratory failure requiring high amounts of oxygen because of the chest x-ray was opted which showed diffuse pulmonary edema probably acute lung injury. Late r patient ended up getting a CAT scan of the chest to rule out pulmonary embolism there is no peripheral embolism. Patient had some infiltrate with air bronchogram but my suspicion is low for pneumonia. Patient was started on systemic steroids for acute lung injury was given as needed Lasix creatinine improved started getting worse now awake and because of the Lasix which will only be ordered on as-needed basis. 08/19/2019 Patient still has crackles on exam her creatinine continued to improve patient is feeling better today patient received Lasix again today. Constitutional: as mentioned above Cardio vascular: denied any chest pain, palpitations Gastrointestinal as mentioned above Pulmonary: Denied any shortness of breath cough Neurologic denied any new focal deficits All inpatient medications were reviewed and appropriate changes in these medications as dictated in the interval history and assessment and plan. Objective - Vital Signs Vital signs: Vital Signs Temp 97.7 F 08/19/19 12:00 Pulse 71 08/19/19 12:00 Resp 19 08/19/19 12:00 BP 115/70 08/19/19 12:00 Pulse Ox 96 08/19/19 12:00 Intake & Output 08/18/19 08/19/19 08/19/19 18:59 06:59 18:59 Intake Total 250 400 Output Total 4250 800 800 Balance -4000 -400 -800 Weight 86 kg Intake: IV 250 Azithromycin 500 mg In 250 Sodium Chloride 0.9% 250 ml @ 250 mls/hr IVPB DAILY@1800 VERÓNICA Rx#: [id number] Intake, IV Titration 50 Amount cefTRIAXone 1 gm In 50 Sodium Chloride 0.9% 50 ml @ 100 mls/hr IVPB Q24H VERÓNICA Rx#:[id number] Oral 350 Output: Urine 4250 800 800 Other: Voiding Method Bedside Commode Bedside Commode Bedside Commode - Exam PHYSICAL EXAMINATION: GENERAL: The patient is alert and oriented x3, not in any acute distress. Well developed, well nourished. HEENT: Pupils are round and equally reacting to light. EOMI. No scleral icterus. No conjunctival pallor. Normocephalic, atraumatic. No pharyngeal erythema. No thyromegaly. CARDIOVASCULAR: S1 and S2 present. No murmurs, rubs, or gallops. PULMONARY: Bibasilar crackles ABDOMEN: She does have tenderness in both the CVA areas including suprapubic tenderness MUSCULOSKELETAL: No joint swelling or deformity. EXTREMITIES: No cyanosis, clubbing, or pedal edema. NEUROLOGICAL: Gross neurological examination did not reveal any focal deficits. SKIN: No rashes. - Labs CBC & Chem 7: 08/19/19 12:14 08/19/19 12:14 Labs: Abnormal Lab Results - Last 24 Hours (Table) 08/18/19 08/18/19 08/19/19 Range/Units 18:16 19:16 12:14 WBC 15.8 H (3.8-10.6) k/uL Hgb 10.9 L (11.4-16.0) gm/dL Hct 33.9 L (34.0-46.0) % Sodium (137-145) mmol/L Potassium 5.5 H (3.5-5.1) mmol/L BUN (7-17) mg/dL Creatinine 1.26 H (0.52-1.04) mg/dL Glucose 174 H (74-99) mg/dL Calcium 8.2 L (8.4-10.2) mg/dL 08/19/19 Range/Units 12:14 WBC (3.8-10.6) k/uL Hgb (11.4-16.0) gm/dL Hct (34.0-46.0) % Sodium 136 L (137-145) mmol/L Potassium (3.5-5.1) mmol/L BUN 21 H (7-17) mg/dL Creatinine (0.52-1.04) mg/dL Glucose 143 H (74-99) mg/dL Calcium (8.4-10.2) mg/dL Microbiology - Last 24 Hours (Table) 08/15/19 22:40 Blood Culture - Preliminary Blood No Growth after 72 hours Assessment and Plan Plan: - severe sepsis secondary to urinary tract infection, pyelonephritis: Continue with Rocephin it's. Although suspicion for pneumonia is low because of a minimal bronchogram on the CAT scan I ended up ordering azithromycin as well. -Acute hypoxic respiratory failure: Secondary to possible acute lung injury, patient is on systemic steroids for that. -Hypovolemic hyponatremia improved with IV fluids presently receiving Lasix because of pulmonary edema which is mostly secondary to acute lung injury rather than heart failure. -Acute renal failure possibility of prerenal azotemia,, NSAID induced to improving now -Leukocytosis secondary to sepsis as mentioned above, improved -Tachycardia secondary to sepsis, and presently now secondary to hypoxemia minimally improved -Asthma without any acute exacerbation
[2019-08-19] MEDS: methylPREDNISolone 4 MG TAB TAPER PO SCH (14:04)
--- NOTE | 2019-08-19 17:13 | PN ---
PROGRESS NOTE Patient is seen for followup for acute kidney injury. She was admitted to the hospital with flank pain, nausea, vomiting and diarrhea. CAT scan showed suggestion of right perinephric edema and pyelonephritis. The patient is maintained on antibiotics. Her urine culture did not grow any specific bacteria. However, patient's overall general condition has improved. She has been maintained on IV fluids also. The patient developed fluid overload and was transferred to the ICU. She received 2 doses of Lasix yesterday. Volume status has improved. This morning, patient is not significantly short of breath. Her creatinine is down to 1.04. PHYSICAL EXAMINATION: This morning blood pressure was 116/84, heart rate 86 per minute. She is afebrile. Examination of the heart S1, S2. Examination of the lungs, bilateral breath sounds are heard. Decreased breath sounds at bases. Abdomen is soft, nontender. Examination of lower extremities shows no significant edema. No CVA tenderness is noted. LABS: Show sodium 136, potassium 4.0, BUN 21, serum creatinine 1.04, hemoglobin 10.9 g/dL. ASSESSMENT: 1. Acute kidney injury associated with sepsis, volume depletion, currently improving. Creatinine down to 1.0. 2. Volume overload, currently improved. I will add another dose of Lasix 20 mg IV times one. 3. Pyelonephritis, maintained on antibiotics and improved. 4. Acute exacerbation of asthma, maintained on steroids and bronchodilators. PLAN: Repeat IV Lasix times one. Repeat labs in a.m. Avoid nephrotoxic agents. MMODL / IJN: [id number] /
[2019-08-20] MEDS: IPRATROPIUM-ALBUTEROL 3 ML NEB INHALATION SCH ×2 (07:16→10:56)
[2019-08-20 07:37] LABS: HCT 36.1 % (34.0-46.0); HGB 11.4 gm/dL (11.4-16.0); MCH 28.2 pg (25.0-35.0); MCHC 31.7 g/dL (31.0-37.0); MCV 89.1 fL (80.0-100.0); Mean Platelet Volume 6.5; Platelet Count 377 k/uL (150-450); RBC 4.05 m/uL (3.80-5.40); RDW 13.7 % (11.5-15.5); WBC 15.3 k/uL (3.8-10.6)
[2019-08-20 07:48] LABS: African American GFR (CKD) >90 (>60 ml/min/1.73 sqM); Anion Gap 9 mmol/L; Blood Urea Nitrogen 28 mg/dL (7-17); Calcium 8.5 mg/dL (8.4-10.2); Carbon Dioxide 30 mmol/L (22-30); Chloride 98 mmol/L (98-107); Glucose 108 mg/dL (74-99); Potassium 4.8 mmol/L (3.5-5.1); Sodium 137 mmol/L (137-145)
[2019-08-20 08:05] VITALS: RESP 14
[2019-08-20] MEDS: methylPREDNISolone 4 MG TAB TAPER PO SCH (09:32)
[2019-08-20 12:05] VITALS: BP 116/57; PULSE 78; TEMP 98.1
--- NOTE | 2019-08-20 12:19 | P.DS ---
Providers Date of admission: 08/18/19 08:49 Expected date of discharge: 08/20/19 Attending physician: Adam Shepherd Consults: 08/16/19 11:21 Consult Physician Urgent Consulting Provider: Jeronimo Rodriguez Consult Reason/Comments: uti, sepsis, elevated BUN and CREAT Do you want consulting provider notified?: Yes 08/18/19 07:42 Consult Physician Urgent Consulting Provider: Peter Espinoza Consult Reason/Comments: Pulm. edema. Do you want consulting provider notified?: Yes Primary care physician: Stated None Hospital Course: Final diagnosis Severe sepsis secondary to urinary tract infection, pyelonephritis Acute hypoxic respiratory failure secondary to possible acute lung injury Acute renal failure possibility of prerenal azotemia Leukocytosis secondary to sepsis Tachycardia secondary to sepsis, and presently now secondary to hypoxemia, improved Asthma without any acute exacerbation Discharge disposition Patient is being discharged in a stable condition with guarded prognosis to home and will follow-up with primary care provider upon discharge. Patient will continue with steroids in the form of Medrol Dosepak as well as oral antibiotics in the form of Ceftin for 1 week. Time taken is 35 minutes. History of present illness This is a 24-year-old female who was recently admitted with urinary tract infection was found to have pyelonephritis with severe sepsis and was being closely monitored. During hospitalization patient's respiratory status worsened and had acute hypoxic respiratory failure secondary to possible acute lung injury with possible fluid overload and has improved. Discussed with the patient at length about continuing to use incentive spirometer along with coughing and deep breathing and patient verbalized understanding. Patient stat es that she does have a history of asthma and not in any acute exacerbation at this time. States that she does not use inhalers as it makes her asthma worse. Patient will continue with a steroid Dosepak as well as oral antibiotics in the form of Ceftin for 1 week and will follow-up with her primary care provider this week. Referral to Dr. Canales was given as primary care provider. Patient's crea tinine during hospitalization slightly elevated and patient will need repeat labs in 2-3 days. Currently patient's condition is stable with much improvement and would like to go home today. Patient is awaiting a ride at this time. She denies any shortness of breath, chest pain, or palpitations at this time. Patient is afebrile. Patient denies any nausea or vomiting and has been tolerating diet. Guarded prognosis. On exam vital signs are stable. Temp is 98.1F, pulse is 78, respirations are 14, blood pressure is 116/57, oxygen saturation is 97% on room air. Cardio S1 and S2 are muffled. Respiratory system shows diminished breath sounds at the bases with minimal expiratory wheezing noticed on exam. Abdomen is soft, obese, nontender. Nervous system shows no focal deficits and gait is steady. Please refer to medication reconciliation sheet for a list of medications. Patient Condition at Discharge: Fair Plan - Discharge Summary Discharge Rx Participant: No New Discharge Prescriptions: New Cefuroxime Axetil [Ceftin] 500 mg PO BID 7 Days #14 tab methylPREDNISolone Dose Pack [Medrol Dose Pack] 4 mg PO DIRECTED #21 package Discontinued Ibuprofen [Motrin Ib] 200 mg PO Q6H PRN PRN Reason: Pain Discharge Medication List Cefuroxime Axetil [Ceftin] 500 mg PO BID 7 Days #14 tab 08/20/19 [Rx] methylPREDNISolone Dose Pack [Medrol Dose Pack] 4 mg PO DIRECTED #21 package 08/20/19 [Rx] Follow up Appointment(s)/Referral(s): Jimenez Canales MD [REFERRING] - 3 Days (Per office policy (for a new patient) please call to schedule this appointment on your own) Ambulatory/Diagnostic Orders: Basic Metabolic Panel [LAB.AMB] Time Frame: 3 Days, Location: None Selected Complete Blood Count w/diff [LAB.AMB] Time Frame: 3 Days, Location: None Selected Activity/Diet/Wound Care/Special Instructions: Activity Limited until follow-up Continue antibiotics until complete Continue steroids until finished Follow up with primary care provider this week Continue current diet and advance as tolerated Repeat labs in 2-3 days Discharge Disposition: HOME SELF-CARE
--- NOTE | 2019-08-20 18:47 | PN ---
PROGRESS NOTE Patient is seen for followup for acute kidney injury. She was admitted with flank pain. CT scan showed evidence of pyelonephritis. The patient has been maintained on antibiotics. She developed fluid overload, for which she has been diuresed. Serum creatinine continues to improve. Creatinine is down to 0.9 mg/dL today. Patient denies any chest pain, shortness of breath, nausea or vomiting. On examination, blood pressure was 100/62, heart rate 79 per minute. She is afebrile. EXAMINATION OF THE HEART: S1 and S2. EXAMINATION OF LUNGS: Bilateral breath sounds are heard. ABDOMEN: Soft, non-tender. Examination of lower extremities shows no evidence of edema. [facility] exam is grossly intact. Labs show sodium of 137, potassium 4.8, BUN 28, serum creatinine 0.9, hemoglobin 11.4 g/dL. ASSESSMENT: 1. Acute kidney injury associated with sepsis, urinary tract infection, currently improved. 2. Volume overload, now resolved. 3. Urinary tract infection with pyelonephritis noted on CT scan. Urine culture, however, did not show any significant growth. Patient should finish her course of antibiotics. PLAN: Patient can be discharged home. She should repeat labs as outpatient, repeat UA and repeat an imaging of the kidneys as outpatient. MMODL / IJN: [id number] /
== END 2019-08-20 12:40 | disposition home or self-care (01) | DRG 871 ==
LOC: EC 19:51 → 6PED 08-16 00:30 → 2SICU 08-18 04:03 → OBSVTOIN 08-18 08:49 → 3SCARD 08-19 14:24
PROVIDERS: ADMIT Internal Medicine; ATTEND Internal Medicine
DX: A41.9 Sepsis, unspecified organism (principal); J96.01 Acute respiratory failure with hypoxia; E87.1 Hypo-osmolality and hyponatremia; J45.21 Mild intermittent asthma with (acute) exacerbation; N10 Acute pyelonephritis; N17.9 Acute kidney failure, unspecified; E86.1 Hypovolemia; E87.6 Hypokalemia; E87.70 Fluid overload, unspecified; K42.9 Umbilical hernia without obstruction or gangrene; R51 Headache; M43.6 Torticollis; R65.20 Severe sepsis without septic shock; Z79.52 Long term (current) use of systemic steroids; Z72.0 Tobacco use; E66.9 Obesity, unspecified; Z68.38 Body mass index [BMI] 38.0-38.9, adult; Z88.8 Allergy status to other drugs, medicaments and biological substances
CPT/HCPCS: 36415; 71045; 71046; 71275; 74176; 76770; 80048; 80053; 81001; 81025; 83605; 83735; 84132; 85025; 85027; 85379; 85610; 85730; 87040; 87086; 87502; 93005; 94640; 94760; 96365; 96366; 96368; 96375; 99285

== ENCOUNTER 2020-06-14 20:00 | Outpatient (CLI) | payer OTHER ==
[2020-06-14] MEDS ORDERED: LACTATED RINGERS 1,000 ML IV SCH (20:30)
[2020-06-14 21:30] VITALS: BP 132/69; PULSE 125; RESP 18; TEMP 97.4
[2020-06-14] MEDS ORDERED: ONDANSETRON 4 MG/2 ML VIAL IVP STA (21:42)
--- NOTE | 2020-07-04 07:45 | P.MSEPDOC ---
Presenting Problems - Arrival Data Date of Arrival on Unit: 06/14/20 Time of Arrival on Unit: 20:00 Mode of Transport: Wheelchair - Complaint OB-Reason for Admission/Chief Complaint: Possible Onset of Labor Comment: Pt states losing mucus plug this morning and sylvia all day since. Pt states some every 3 minutes rates pain 9/10 Medical History - Information : 1 Para: 0 Term: 0 : 0 Abortions: Spontaneous or Elective: 0 Number of Living Children: 0 - Gestational Age Gestational Age by MADALYN (wks/days): 38 Weeks and 5 Days - History Complications: GBS+ Review of Systems - Review of Systems Constitutional: No problems Breast: No problems ENT: No problems Cardiovascular: No problems Respiratory: No problems Gastrointestinal: No problems Genitourinary: No problems Musculoskeletal: No problems Neurological: No problems Skin: No problems Vital Signs - Temperature Temperature: 97.4 F Temperature Source: Temporal Artery Scan - Pulse Right Brachial Pulse Rate: 125 Pulse Assessment Method: Automatic Cuff - Respirations Oxygen Delivery Method: Room Air - Blood Pressure Right Arm Blood Pressure: 132/69 Blood Pressure Mean: 90 Blood Pressure Source: Automatic Cuff Medical Screen Scoring (Pre) - Cervical Exam Dilation: 0 cm = 0 Effacement: More than 50% = 2 Membranes: Intact - Uterine Contractions Frequency: > or = 36 weeks =2 Duration: > 40 seconds = 2 Intensity: N/A - Maternal Vital Signs Maternal Temperature: N/A Signs of Preeclampsia: N/A Maternal Respirations: N/A - Maternal Trauma Maternal Trauma: N/A - Assessment - Baby A Baseline FHR: 135 Heart Rate - NICHD Category: Category I (Normal) = 0 - Total Score - Baby A Total Score - Baby A: 6 - Total Score - Baby B Total Score - Baby B: 6 - Total Score - Baby C Total Score - Baby C: 6 - Level of Risk - Baby A Level of Risk - Baby A: Medium (6-9) - Level of Risk - Baby B Level of Risk - Baby B: Medium (6-9) - Level of Risk - Baby C Level of Risk - Baby C: Medium (6-9) Physician Notification (Pre) - Physician Notified Physician Notified Date: 06/14/20 Physician Notified Time: 20:23 New Order Received: Yes - Notification Comment Comment: Reported vag exam 1/100 orders to recheck in 1 hour. Medical Screen Scoring (Post) - Uterine Contractions Frequency: > or = 36 weeks =2 Duration: > 40 seconds = 2 Intensity: N/A - Maternal Vital Signs Maternal Temperature: N/A Signs of Preeclampsia: N/A Maternal Respirations: N/A - Pain Assessment Pain Location and Character: Abdomen Pain Scale Used: Numeric (1 - 10) Pain Intensity: 9 Pain Management Goal: 2 Pain Description: *Acute, Cramping Pain Radiation Location: no Pain Frequency: Intermittent Pain Duration: 1 Pain Duration Units: Hours Pain Behavior: Vocalization Pain Aggravating Factors: Contractions Pharmacological Interventions: PRN Medication - Maternal Trauma Maternal Trauma: N/A - Assessment - Baby A Heart Rate: 135 Heart Rate - NICHD Category: Category I (Normal) = 0 NST: Reactive - Total Score Total Score - Baby A: 4 Total Score - Baby B: 4 Total Score - Baby C: 4 - Post Treatment Level of Risk Post Treatment Level of Risk - Baby A: Low (0-5) Post Treatment Level of Risk - Baby B: Low (0-5) Post Treatment Level of Risk - Baby C: Low (0-5) Physician Notification (Post) - Physician Notified Physician Notified Date: 06/14/20 Physician Notified Time: 21:40 Physician/Practitioner Notified:: Benjamin New Order Received: Yes - Notification Comment Comment: Reported pt vag exam 1.5/100, vitals, pt vomitting. Orders for 4mg zofran and d/c home. Latent labor discussed with pt. Disposition - Disposition OB Disposition: Discharge to home, Written follow up instructions reviewed Discharge Date: 06/14/20 Discharge Time: 22:00 I agree with the RN Medical Screening Exam: Yes Risk & Benefit of care provided described in d/c instruction: Yes Diagnosis: false labor
== END 2020-06-14 22:00 | disposition home or self-care (01) ==
LOC: FBPOP 20:00
PROVIDERS: ATTEND Obstetrics & Gynecology
DX: O47.1 False labor at or after 37 completed weeks of gestation (principal); Z3A.38 38 weeks gestation of pregnancy
CPT/HCPCS: 59025; 96361; 96374; G0463; J2405; 96360; 96375; 99214

== ENCOUNTER 2020-06-15 03:29 | Inpatient (IN) | payer OTHER ==
[2020-06-15] MEDS ORDERED: ONDANSETRON 4 MG TAB PO PRN (04:43)
[2020-06-15] MEDS ORDERED: SIMETHICONE 80 MG CHEWABLE PO PRN ×2 (04:45→16:55)
[2020-06-15 05:32] LABS: Appearance,Urine Turbid (Clear); Bilirubin,Urine Negative (Negative); Blood,Urine Moderate (Negative); Color,Urine Yellow; Glucose,Urine (UA) Negative (Negative); Ketones,Urine 4+ (Negative); Leukocyte Esterase,Urine Large (Negative); Mucus,Urine Many /hpf; Nitrite,Urine Negative (Negative); PH, Urine 6.5 (5.0-8.0); Protein,Urine 3+ (Negative); RBC,Urine >182 /hpf (0-5); Specific Gravity,Urine 1.021 (1.001-1.035); Squamous Epithelial Cell,Urine 15 /hpf (0-4); WBC,Urine >182 /hpf (0-5)
[2020-06-15 05:55] VITALS: RESP 16
[2020-06-15] MEDS ORDERED: LACTATED RINGERS 1,000 ML IV SCH ×2 (06:00→07:00)
[2020-06-15] MEDS ORDERED: METHYLERGONOVINE 0.2 MG/ML 1 ML AMP IM PRN (06:51)
[2020-06-15] MEDS ORDERED: OXYTOCIN 10 UNIT/ML 1 ML VIAL IM PRN (06:51)
[2020-06-15] MEDS ORDERED: AMPICILLIN 2,000 MG in SODIUM CHLORIDE 0.9% 100 ML IVPB STA (06:51)
[2020-06-15] MEDS ORDERED: LIDOCAINE 0.5% (PF) 5 MG/ML (50 ML SDV) SQ PRN (06:51)
[2020-06-15] MEDS ORDERED: CARBOPROST TROMETHAMINE 250 MCG/ML 1 ML AMP IM PRN (06:51)
[2020-06-15] MEDS ORDERED: TERBUTALINE 1 MG/ML VIAL SQ PRN (06:51)
[2020-06-15] MEDS ORDERED: OXYTOCIN 30 UNITS/500 ML NS 30 UNIT in SALINE 1 500ML.BAG IV SCH (07:00)
[2020-06-15] MEDS: LACTATED RINGERS 1,000 ML IV SCH ×3 (07:20→10:15)
[2020-06-15 08:11] LABS: Basophils % (A) 0 %; Eosinophils % (A) 0 %; HCT 35.5 % (34.0-46.0); Hypochromasia Marked; Lymphocytes # (A) 0.8 k/uL (1.0-4.8); Lymphocytes % (A) 5 %; MCH 26.1 pg (25.0-35.0); MCHC 30.9 g/dL (31.0-37.0); MCV 84.5 fL (80.0-100.0); Mean Platelet Volume 8.3; Monocytes # (A) 0.4 k/uL (0-1.0); Monocytes % (A) 2 %; Neutrophils # (A) 16.4 k/uL (1.3-7.7); Neutrophils % (A) 92 %; Platelet Count 319 k/uL (150-450); RDW 14.5 % (11.5-15.5); WBC 17.8 k/uL (3.8-10.6)
[2020-06-15] MEDS ORDERED: ROPIVACAINE 5MG/ML 20ML VIAL ONE (08:54)
[2020-06-15] MEDS ORDERED: SODIUM CHLORIDE 0.9% 100 ML BAG ONE (08:54)
[2020-06-15] MEDS ORDERED: fentaNYL (PF) 50 MCG/ML 5 ML AMP ONE (08:54)
[2020-06-15] MEDS ORDERED: AMPICILLIN 1,000 MG in SODIUM CHLORIDE 0.9% 50 ML IVPB SCH (10:51)
[2020-06-15 14:55] LABS: Amphetamine Screen,Urine Not Detected (NotDetected); Barbiturate Screen,Urine Not Detected (NotDetected); Benzodiazepines Screen,Urine Not Detected (NotDetected); Cocaine Screen,Urine Not Detected (NotDetected); Methadone Screen, Urine Not Detected (NotDetected); Opiate Screen,Urine Not Detected (NotDetected); Oxycodone Screen, Urine Not Detected (NotDetected); Phencyclidine Screen,Urine Not Detected (NotDetected); Tricyclic Antidepressant,Urine Not Detected (NotDetected); Urn Cannabinoid Scrn Not Detected (NotDetected)
[2020-06-15] MEDS ORDERED: HYDROCORTISONE 2.5% RECTAL CREAM 30 GM TUBE RECTAL PRN (16:55)
[2020-06-15] MEDS ORDERED: ZOLPIDEM 5 MG TAB PO PRN (16:55)
[2020-06-15] MEDS ORDERED: diphenhydrAMINE 50 MG/ML 1 ML VIAL IVP PRN ×2 (16:55)
[2020-06-15] MEDS ORDERED: diphenhydrAMINE 50 MG CAP PO PRN (16:55)
[2020-06-15] MEDS ORDERED: HYDROcodone/APAP 5-325MG 1 EACH TAB PO PRN (16:55)
[2020-06-15] MEDS ORDERED: ACETAMINOPHEN TAB 325 MG TAB PO PRN (16:55)
[2020-06-15] MEDS ORDERED: diphenhydrAMINE 25 MG CAP PO PRN (16:55)
[2020-06-15] MEDS ORDERED: BENZOCAINE/MENTHOL SPRAY 1 GM/SPRAY AEROSOL TOPICAL PRN (16:55)
[2020-06-15] MEDS ORDERED: LANOLIN CREAM 5 GM TUBE TOPICAL PRN (16:55)
[2020-06-15] MEDS ORDERED: IBUPROFEN 600 MG TAB PO PRN (16:55)
[2020-06-15] MEDS ORDERED: OXYTOCIN 20 UNITS/1000 ML NS 1,000 ML IV SCH (17:00)
--- NOTE | 2020-06-15 17:01 | P.PROBDLV ---
Vaginal Delivery Note - . Vaginal Delivery Note: This is a 25-year-old 1 para 0 at 38-6/7 weeks that presents to labor and delivery with complaints of regular painful contractions and increased nausea and vomiting. Patient was noted to be 3 cm and therefore admitted to labor and delivery. Patient was noted to be sylvia regularly, amniotomy was performed and clear fluid was obtained. Patient became uncomfortable requesting epidural placement. Epidural was placed without difficulty by the anesthesia department. Patient contractions were noted to be spacing out therefore Pitocin augmentation of labor was begun. Patient progressed through labor becoming complete. Patient began pushing and had a normal spontaneous vaginal delivery of a viable female at 1617, weight of 7 lbs. 2 oz. with Apgars of 9 and 9 at one and 5 minutes respectively. Female infant was at the crown position for multiple pushes unable to pass through therefore episiotomy was performed. After two- minute delayed the umbo cord was clamped and cut and the infant was handed off to the maternal abdomen. The placenta was then delivered spontaneously intact with a three-vessel cord being noted. On inspection the patient's vaginal vault a small first-degree episiotomy was noted. This was repaired in the usual fashion with 3-0 Rapide. Hemostasis was appreciated afterwards. On inspection the patient's vaginal vault no further lacerations were noted. The uterus is noted to be firm and below the umbilicus. Estimated blood loss 400 mL All counts were noted to be correct 2 at the end of the delivery. Patient and tolerated delivery well and are resting comfortably.
[2020-06-15] MEDS ORDERED: PRENATAL VIT-IRON-FOLIC ACID 1 EACH CAP PO ONE (18:00)
[2020-06-15] MEDS ORDERED: SENNOSIDES-DOCUSATE SODIUM 1 EACH TAB PO SCH (20:00)
[2020-06-16 06:33] LABS: Basophils % (A) 0 %; Eosinophils # (A) 0.1 k/uL (0-0.7); Eosinophils % (A) 1 %; Hypochromasia Moderate; Lymphocytes # (A) 2.6 k/uL (1.0-4.8); Lymphocytes % (A) 17 %; MCH 24.5 pg (25.0-35.0); MCV 78.8 fL (80.0-100.0); Mean Platelet Volume 7.8; Monocytes # (A) 0.8 k/uL (0-1.0); Monocytes % (A) 5 %; Neutrophils # (A) 11.5 k/uL (1.3-7.7); Neutrophils % (A) 75 %; Platelet Count 301 k/uL (150-450); RBC 3.68 m/uL (3.80-5.40); RDW 15.1 % (11.5-15.5); WBC 15.4 k/uL (3.8-10.6)
--- NOTE | 2020-06-16 07:38 | P.DS ---
Providers Date of admission: 06/15/20 06:50 Expected date of discharge: 06/16/20 Attending physician: Emily Adams Primary care physician: Stated None - Discharge Diagnosis(es) (1) Term Current Visit: Yes Status: Acute (2) Active labor Current Visit: Yes Status: Acute (3) Positive GBS test Current Visit: Yes Status: Acute (4) Status post vaginal delivery Current Visit: Yes Status: Acute (5) Obstetric vaginal laceration Current Visit: Yes Status: Acute Hospital Course: This is a 25-year-old 1 now para 1 that presented to labor and delivery yesterday 06/15 with complaints of regular painful contractions. Patient was admitted to labor and delivery. Patient soon requested epidural after admission. Patient underwent amniotomy and clear fluid was obtained. Patient progressed through labor eventually becoming complete. Patient started pushing and had a normal spontaneous vaginal delivery of a viable female infant at 1617, weight of 7 lbs. 2 oz. with Apgars of 9 and 9 at one and 5 minutes respectively. Patient did undergo a midline episiotomy during delivery which was repaired in the usual fashion. Patient's course has been uneventful. On this day #1 she is in bleeding and voiding without difficulty. She is tolerating regular diet without nausea or vomiting. She states her pain is well-controlled. She would like discharge home at 24 hours if possible. Patient Condition at Discharge: Good Plan - Discharge Summary New Discharge Prescriptions: No Action Pnv No.95/Ferrous Fum/Folic AC [ Multivitamin Tablet] 1 tab PO ONCE Discharge Medication List Pnv No.95/Ferrous Fum/Folic AC [ Multivitamin Tablet] 1 tab PO ONCE 06/14/20 [History] Follow up Appointment(s)/Referral(s): Emily Adams DO [Doctor of Osteopathic Medicine] - 4 Weeks Patient Instructions/Handouts: Vaginal Delivery (DC), Vaginal Delivery (GEN) Discharge Disposition: HOME SELF-CARE
[2020-06-16 18:01] VITALS: BP 99/67; PULSE 87; TEMP 97.6
== END 2020-06-16 18:10 | disposition home or self-care (01) | DRG 807 ==
LOC: FBPOP 03:29 → 4FBP 06:50
PROVIDERS: ADMIT Obstetrics & Gynecology; ATTEND Obstetrics & Gynecology Obstetrics
PROC: 10E0XZZ Delivery of Products of Conception, External Approach (ICD-10-PCS; principal; 2020-06-15)
PROC: 10907ZC Drainage of Amniotic Fluid, Therapeutic from Products of Conception, Via Natural or Artificial Opening (ICD-10-PCS; 2020-06-15)
PROC: 0W8NXZZ Division of Female Perineum, External Approach (ICD-10-PCS; 2020-06-15)
PROC: 3E0R3BZ Introduction of Anesthetic Agent into Spinal Canal, Percutaneous Approach (ICD-10-PCS; 2020-06-15)
DX: O99.824 Streptococcus B carrier state complicating childbirth (principal); Z37.0 Single live birth; O99.52 Diseases of the respiratory system complicating childbirth; J45.909 Unspecified asthma, uncomplicated; Z3A.38 38 weeks gestation of pregnancy; Z79.899 Other long term (current) drug therapy
CPT/HCPCS: 59025; 80306; 81001; 85025; 86850; 86900; 86901; 96361; 99214

== ENCOUNTER 2020-08-31 16:39 | Emergency (ER) | payer OTHER ==
[2020-08-31] MEDS ORDERED: ALBUTEROL HFA INHALER INHALATION STA (17:30)
[2020-08-31] MEDS ORDERED: ACETAMINOPHEN TAB 500 MG TAB PO STA (17:30)
--- NOTE | 2020-08-31 18:21 | ED ---
General Adult HPI - General Chief complaint: Upper Respiratory Infection Stated complaint: Wanting covid test Time Seen by Provider: 08/31/20 17:04 Source: patient, RN notes reviewed Mode of arrival: ambulatory Limitations: no limitations - History of Present Illness Initial comments: 25-year-old female with a past medical history of asthma presents to the emergency room for chief complaint of cough. Patient reports she has had a cough for 3 days. States she is starting to get an asthma exacerbation she thinks. Patient does not have a rescue inhaler at home. Patient admits to minimal shortness of breath. Denies chest pain. Patient did have chills. She is also admitting to a sore throat. Patient has no other complaints at this time including shortness of breath, chest pain, abdominal pain, nausea or vomiting, headache, or visual changes. - Related Data Home Medications Medication Instructions Recorded Confirmed Pnv No.95/Ferrous Fum/Folic AC 1 tab PO ONCE 06/14/20 06/15/20 [ Multivitamin Tablet] Previous Rx's Medication Instructions Recorded Albuterol Inhaler [Ventolin Hfa 2 puff INHALATION RT-QID PRN #1 08/31/20 Inhaler] inhaler predniSONE 50 mg PO DAILY #5 tablet 08/31/20 Allergies Allergy/AdvReac Type Severity Reaction Status Date / Time benzoyl peroxide Allergy Intermediate Swelling Verified 08/31/20 16:55 Review of Systems ROS Statement: Those systems with pertinent positive or pertinent negative responses have been documented in the HPI. ROS Other: All systems not noted in ROS Statement are negative. Past Medical History Past Medical History: Asthma History of Any Multi-Drug Resistant Organisms: None Reported Past Surgical History: No Surgical Hx Reported Past Anesthesia/Blood Transfusion Reactions: No Reported Reaction Past Psychological History: No Psychological Hx Reported Smoking Status: Never smoker Past Alcohol Use History: Occasional Past Drug Use History: None Reported - Past Family History Mother Family Medical History: No Reported History General Exam Limitations: no limitations General appearance: alert, in no apparent distress Head exam: Present: atraumatic, normocephalic, normal inspection Eye exam: Present: normal appearance, PERRL, EOMI. Absent: scleral icterus, conjunctival injection, periorbital swelling ENT exam: Present: normal exam, normal oropharynx (Uvula midline, no tonsillar exudates noted bilaterally), mucous membranes moist, TM's normal bilaterally, normal external ear exam Neck exam: Present: normal inspection, full ROM Respiratory exam: Present: wheezes (minimal wheezing). Absent: respiratory distress, rales, rhonchi, stridor Cardiovascular Exam: Present: regular rate, normal rhythm, normal heart sounds. Absent: systolic murmur, diastolic murmur, rubs, gallop, clicks GI/Abdominal exam: Present: soft, normal bowel sounds. Absent: distended, tenderness, guarding, rebound, rigid Neurological exam: Present: alert Course Vital Signs 08/31/20 08/31/20 16:53 18:40 Temperature 100.4 F H 99.1 F Pulse Rate 99 93 Respiratory 20 18 Rate Blood Pressure 112/70 113/73 O2 Sat by Pulse 99 98 Oximetry Medical Decision Making - Medical Decision Making Patient initially febrile with a temperature of 100.4 which improved to 99.1 after Tylenol given. Vitals are otherwise normal. HPI and physical exam as documented. Minimal wheezing noted which improved after inhaler use. Chest x- ray shows no acute process. Strep is negative. Patient will be treated for asthma exacerbation with steroids and inhaler. Alberto virus is pending. Patient will quarantine until that time. Patient will follow up with primary care. Strict return parameters discussed. - Lab Data Lab Results 08/31/20 Range/Units 17:57 Group A Strep Rapid Negative (Negative) Disposition Clinical Impression: Cough Disposition: HOME SELF-CARE Condition: Good Instructions (If sedation given, give patient instructions): Upper Respiratory Infection (ED) Additional Instructions: Please take Motrin and Tylenol for fever. Follow-up on Covid results. Quarantine until that time. Use inhaler and steroid as directed. Return to the emergency room for any worsening symptoms. Prescriptions: predniSONE 50 mg PO DAILY #5 tablet Albuterol Inhaler [Ventolin Hfa Inhaler] 2 puff INHALATION RT-QID PRN #1 inhaler PRN Reason: Shortness Of Breath Is patient prescribed a controlled substance at d/c from ED?: No Referrals: Rich Moreno MD [Primary Care Provider] - 1-2 days Time of Disposition: 18:46
--- NOTE | 2020-08-31 18:33 | XR ---
EXAMINATION TYPE: XR chest 1V portable DATE OF EXAM: 08/31/2020 COMPARISON: 08/19/2019 HISTORY: Cough TECHNIQUE: FINDINGS: Heart and mediastinum are normal. Lungs are clear. Diaphragm is normal. Bony thorax appears normal. IMPRESSION: Normal chest. No change.
[2020-08-31 18:40] VITALS: BP 113/73; PULSE 93; RESP 18; TEMP 99.1
== END 2020-08-31 18:54 | disposition home or self-care (01) ==
LOC: EC 16:39
DX: R05 Cough (principal); R06.02 Shortness of breath; Z88.8 Allergy status to other drugs, medicaments and biological substances; Z20.828 Contact with and (suspected) exposure to other viral communicable diseases
CPT/HCPCS: 87081; 87430; 71045; 99285; U0003

== ENCOUNTER 2020-12-21 17:22 | Emergency (ER) | payer OTHER ==
[2020-12-21 17:36] VITALS: BP 128/77; RESP 18; TEMP 99.2
[2020-12-21] MEDS ORDERED: IPRATROPIUM-ALBUTEROL 3 ML NEB INHALATION STA (17:44)
--- NOTE | 2020-12-21 17:49 | ED ---
SOB HPI - General Chief Complaint: Shortness of Breath Stated Complaint: Asthma Attack Time Seen by Provider: 12/21/20 17:37 Source: patient Mode of arrival: ambulatory Limitations: no limitations - History of Present Illness Initial Comments: Patient is a healthy 25-year-old female presenting to the emergency Department with complaints of having an asthma attack. Patient states she had a stuffy nose and some mild congestion yesterday but then today at work going from the cold air to the warm air, triggered her asthma. Patient states she has had i ncrease in cough and feels short of breath. Patient states she tried using her inhaler but is not helping. She did have one episode of vomiting when she tried to take some cough medicine. She randomly took a test today which did come back positive. She denies any abdominal pain, no vaginal bleeding. She states this does feel like her normal asthma attacks, and it normally happens in the winter time. She denies any fever or chills, no chest pain. She has no further complaints at this time. Upon arrival to the ER, she is slightly tachycardia at 102. - Related Data Home Medications Medication Instructions Recorded Confirmed Pnv No.95/Ferrous Fum/Folic AC 1 tab PO ONCE 06/14/20 06/15/20 [ Multivitamin Tablet] Previous Rx's Medication Instructions Recorded Albuterol Inhaler [Ventolin Hfa 2 puff INHALATION RT-QID PRN #1 08/31/20 Inhaler] inhaler predniSONE 50 mg PO DAILY #5 tablet 08/31/20 Albuterol Inhaler [Ventolin Hfa 1 puff INHALATION RT-QID PRN #1 12/21/20 Inhaler] puff Allergies Allergy/AdvReac Type Severity Reaction Status Date / Time benzoyl peroxide Allergy Intermediate Swelling Verified 12/21/20 17:35 Review of Systems ROS Statement: Those systems with pertinent positive or pertinent negative responses have been documented in the HPI. ROS Other: All systems not noted in ROS Statement are negative. Past Medical History Past Medical History: Asthma History of Any Multi-Drug Resistant Organisms: None Reported Past Surgical History: No Surgical Hx Reported Past Anesthesia/Blood Transfusion Reactions: No Reported Reaction Past Psychological History: No Psychological Hx Reported Smoking Status: Never smoker Past Alcohol Use History: Occasional Past Drug Use History: None Reported - Past Family History Mother Family Medical History: No Reported History General Exam - General Exam Comments Initial Comments: GENERAL: Patient is well-developed and well-nourished. Patient is nontoxic and in no acute distress. HEAD: Atraumatic, normocephalic. EYES: Pupils equal round and reactive to light, extraocular movements intact, sclera anicteric, conjunctiva are normal. Eyelids were unremarkable. ENT: TMs normal, nares patent, oropharynx slightly erythematous, no tonsillar enlargement, no exudate, postnasal drip.. Moist mucous membranes. NECK: Normal range of motion, supple without lymphadenopathy or JVD. LUNGS: Unlabored respirations. Breath sounds clear to auscultation bilaterally and equal. No wheezes rales or rhonchi. HEART: slightly tachycardic rate and rhythm without murmurs, rubs or gallops. ABDOMEN: Soft, nontender, normoactive bowel sounds. No guarding, no rebound. No masses appreciated. : Deferred MUSCULOSKELETAL: Normal extremities with adequate strength and normal range of motion, no pitting or edema. No clubbing or cyanosis. NEUROLOGICAL: Patient is alert and oriented x 3. Motor and sensory are also intact. Cranial nerves II through XII grossly intact. Symmetrical smile. Normal speech, normal gait. PSYCH: Normal mood, normal affect. SKIN: Warm, Dry, normal turgor, no rashes or lesions noted. Limitations: no limitations Course Vital Signs 12/21/20 12/21/20 12/21/20 17:29 17:51 18:01 Temperature 99.2 F Pulse Rate 102 H 100 110 H Respiratory 18 Rate Blood Pressure 128/77 O2 Sat by Pulse 99 Oximetry Medical Decision Making - Medical Decision Making patient is a 25-year-old female here with history of asthma presenting with an asthma attack started today. She had some mild congestion yesterday but then today going from cold to warm air triggered an attack. She states her bite on his is not helping. She denies any fevers. She is a home test today which should come back positive. She denies any other symptoms. He is slightly tachycardia on arrival, rest of vitals are normal. She is not in any acute distress. She was given a breathing treatment with improvement in her symptoms. patient's test did come back positive. I discussed with patient these findings. Patient wishes to be tested for Covid, we will do a PCR test, and we'll send out. This is pending. I discussed with patient that her symptoms are consistent with an asthma attack. I will refill her albuterol inhaler. I also recommended Claritin or Zyrtec for her symptoms. She needs to follow-up with her regular doctor or her OB. She is in agreement with this plan of care. Patient is stable for discharge. Patient is in agreement with this plan of care. Return parameters were discussed with the patient and they verbalized understanding. Case discussed with Dr. Newton. - Lab Data Lab Results 12/21/20 Range/Units 18:01 Urine HCG, Qual Detected (Not Detectd) Disposition Clinical Impression: Asthma attack, Disposition: HOME SELF-CARE Condition: Stable Instructions (If sedation given, give patient instructions): Asthma (ED) Additional Instructions: Please return to the Emergency Department if symptoms worsen or any other concerns. Covid test is pending. Use inhaler as needed for shortness of breath. Also recommend Claritin or Zyrtec for your symptoms. Follow-up with your [employer] as discussed. Prescriptions: Albuterol Inhaler [Ventolin Hfa Inhaler] 1 puff INHALATION RT-QID PRN #1 puff PRN Reason: Shortness Of Breath Is patient prescribed a controlled substance at d/c from ED?: No Referrals: None,Stated [Primary Care Provider] - 1-2 days
[2020-12-21 18:02] VITALS: PULSE 110
== END 2020-12-21 18:18 | disposition home or self-care (01) ==
LOC: EC 17:22
DX: O99.519 Diseases of the respiratory system complicating pregnancy, unspecified trimester (principal); J45.909 Unspecified asthma, uncomplicated; Z3A.00 Weeks of gestation of pregnancy not specified; Z20.822 Contact with and (suspected) exposure to COVID-19; Z88.8 Allergy status to other drugs, medicaments and biological substances
CPT/HCPCS: 99285 ×2; 94640; 81025; U0003; U0005

== ENCOUNTER 2021-01-19 20:18 | Emergency (ER) | payer OTHER ==
[2021-01-19 20:25] VITALS: BP 110/65; PULSE 75; RESP 20; TEMP 98.7
[2021-01-19] MEDS ORDERED: SODIUM CHLORIDE 0.9% 1,000 ML IV STA (20:41)
[2021-01-19] MEDS ORDERED: ONDANSETRON 4 MG/2 ML VIAL IVP STA (20:41)
[2021-01-19] MEDS ORDERED: MORPHINE SULFATE 4 MG/ML SYRINGE IV STA (20:41)
--- NOTE | 2021-01-19 20:51 | ED ---
Abdominal Pain HPI - General Chief Complaint: Abdominal Pain Stated Complaint: Cramps, 7-8 weeks Time Seen by Provider: 01/19/21 20:34 Source: patient, RN notes reviewed Mode of arrival: wheelchair Limitations: no limitations - History of Present Illness Initial Comments: Patient is a 25-year-old female that presents emergency Department with lower abdominal pain. She noted that the pain goes of left-sided right-sided. She recently gave to a healthy baby girl. 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 She noted that the was uncomplicated with no issues She reported a history of ovarian cysts or other [employer] complaints. She denied any nausea or vomiting. She states the pain has been going on for about the last hour and half to 2 hours. She noted that she tried sticking out work but when she bent over the pain became too much. She said the pain as bolus was in and out of 10 but is currently about a 6 out of 10 with no relief. She denied any chest pain shortness breath headache nausea vomiting diarrhea constipation fever fatigue chills - Related Data Home Medications Medication Instructions Recorded Confirmed Pnv No.95/Ferrous Fum/Folic AC 1 tab PO ONCE 06/14/20 06/15/20 [ Multivitamin Tablet] Previous Rx's Medication Instructions Recorded Albuterol Inhaler [Ventolin Hfa 2 puff INHALATION RT-QID PRN #1 08/31/20 Inhaler] inhaler predniSONE 50 mg PO DAILY #5 tablet 08/31/20 Albuterol Inhaler [Ventolin Hfa 1 puff INHALATION RT-QID PRN #1 12/21/20 Inhaler] puff Allergies Allergy/AdvReac Type Severity Reaction Status Date / Time benzoyl peroxide Allergy Intermediate Swelling Verified 01/19/21 20:25 Review of Systems ROS Statement: Those systems with pertinent positive or pertinent negative responses have been documented in the HPI. ROS Other: All systems not noted in ROS Statement are negative. Past Medical History Past Medical History: Asthma History of Any Multi-Drug Resistant Organisms: None Reported Past Surgical History: No Surgical Hx Reported Past Anesthesia/Blood Transfusion Reactions: No Reported Reaction Past Psychological History: No Psychological Hx Reported Smoking Status: Never smoker Past Alcohol Use History: Occasional Past Drug Use History: None Reported - Past Family History Mother Family Medical History: No Reported History General Exam Limitations: no limitations General appearance: alert, in distress, obese Head exam: Present: atraumatic, normocephalic, normal inspection Eye exam: Present: normal appearance, PERRL, EOMI. Absent: scleral icterus, conjunctival injection, periorbital swelling ENT exam: Present: normal exam, mucous membranes moist Neck exam: Present: normal inspection. Absent: tenderness, meningismus, lymphadenopathy Respiratory exam: Present: normal lung sounds bilaterally. Absent: respiratory distress, wheezes, rales, rhonchi, stridor Cardiovascular Exam: Present: regular rate, normal rhythm, normal heart sounds. Absent: systolic murmur, diastolic murmur, rubs, gallop, clicks GI/Abdominal exam: Present: soft, tenderness (Generalized lower abdominal pain to palpation), hypoactive bowel sounds. Absent: distended, guarding, rebound, rigid Extremities exam: Present: normal inspection, full ROM, normal capillary refill. Absent: tenderness, pedal edema, joint swelling, calf tenderness Neurological exam: Present: alert, oriented X3, CN II-XII intact Psychiatric exam: Present: normal affect, normal mood Skin exam: Present: warm, dry, intact, normal color. Absent: rash Course Vital Signs 01/19/21 20:20 Temperature 98.7 F Pulse Rate 75 Respiratory 20 Rate Blood Pressure 110/65 O2 Sat by Pulse 98 Oximetry Medical Decision Making - Medical Decision Making 25-year-old female complaining of lower abdominal pain. Labs, 1 L normal saline, CT of the abdomen and pelvis, transvaginal ultrasound, 4 mg of morphine, 4 mg of Zofran ordered. Ultrasound unremarkable, labs unremarkable. Case discussed with Dr. Rodriguez, was decided the patient could discharge home with follow-up to [facility] [employer]IAN. - Lab Data Result diagrams: 01/19/21 21:11 01/19/21 21:11 Lab Results 01/19/21 01/19/21 01/19/21 Range/Units 21:11 21:11 21:11 WBC 14.6 H (3.8-10.6) k/uL RBC 4.68 (3.80-5.40) m/uL Hgb 12.2 (11.4-16.0) gm/dL Hct 36.6 (34.0-46.0) % MCV 78.3 L (80.0-100.0) fL MCH 26.1 (25.0-35.0) pg MCHC 33.3 (31.0-37.0) g/dL RDW 16.6 H (11.5-15.5) % Plt Count 292 (150-450) k/uL MPV 7.3 Neutrophils % 75 % Lymphocytes % 18 % Monocytes % 5 % Eosinophils % 1 % Basophils % 0 % Neutrophils # 11.0 H (1.3-7.7) k/uL Lymphocytes # 2.6 (1.0-4.8) k/uL Monocytes # 0.7 (0-1.0) k/uL Eosinophils # 0.2 (0-0.7) k/uL Basophils # 0.0 (0-0.2) k/uL Anisocytosis Slight Microcytosis Slight Sodium (137-145) mmol/L Potassium (3.5-5.1) mmol/L Chloride (98-107) mmol/L Carbon Dioxide (22-30) mmol/L Anion Gap mmol/L BUN (7-17) mg/dL Creatinine (0.52-1.04) mg/dL Est GFR (CKD-EPI)AfAm (>60 ml/min/1.73 sqM) Est GFR (CKD-EPI)NonAf (>60 ml/min/1.73 sqM) Glucose (74-99) mg/dL Calcium (8.4-10.2) mg/dL Total Bilirubin (0.2-1.3) mg/dL AST (14-36) U/L ALT (4-34) U/L Alkaline Phosphatase (38-126) U/L Total Protein (6.3-8.2) g/dL Albumin (3.5-5.0) g/dL Amylase (30-110) U/L Lipase (23-300) U/L Urine Color Yellow Urine Appearance Clear (Clear) Urine pH 6.0 (5.0-8.0) Ur Specific [place] 1.026 (1.001-1.035) Urine Protein Trace H (Negative) Urine Glucose (UA) Negative (Negative) Urine Ketones Negative (Negative) Urine Blood Negative (Negative) Urine Nitrite Negative (Negative) Urine Bilirubin Negative (Negative) Urine Urobilinogen <2.0 (<2.0) mg/dL Ur Leukocyte Esterase Moderate H (Negative) Urine RBC 1 (0-5) /hpf Urine WBC 3 (0-5) /hpf Ur Squamous Epith Cells 3 (0-4) /hpf Urine Mucus Rare H (None) /hpf Urine HCG, Qual Detected (Not Detectd) 01/19/21 Range/Units 21:11 WBC (3.8-10.6) k/uL RBC (3.80-5.40) m/uL Hgb (11.4-16.0) gm/dL Hct (34.0-46.0) % MCV (80.0-100.0) fL MCH (25.0-35.0) pg MCHC (31.0-37.0) g/dL RDW (11.5-15.5) % Plt Count (150-450) k/uL MPV Neutrophils % % Lymphocytes % % Monocytes % % Eosinophils % % Basophils % % Neutrophils # (1.3-7.7) k/uL Lymphocytes # (1.0-4.8) k/uL Monocytes # (0-1.0) k/uL Eosinophils # (0-0.7) k/uL Basophils # (0-0.2) k/uL Anisocytosis Microcytosis Sodium 135 L (137-145) mmol/L Potassium 4.0 (3.5-5.1) mmol/L Chloride 103 (98-107) mmol/L Carbon Dioxide 22 (22-30) mmol/L Anion Gap 10 mmol/L BUN 12 (7-17) mg/dL Creatinine 0.68 (0.52-1.04) mg/dL Est GFR (CKD-EPI)AfAm >90 (>60 ml/min/1.73 sqM) Est GFR (CKD-EPI)NonAf >90 (>60 ml/min/1.73 sqM) Glucose 80 (74-99) mg/dL Calcium 9.7 (8.4-10.2) mg/dL Total Bilirubin 0.3 (0.2-1.3) mg/dL AST 19 (14-36) U/L ALT 13 (4-34) U/L Alkaline Phosphatase 74 (38-126) U/L Total Protein 7.9 (6.3-8.2) g/dL Albumin 4.5 (3.5-5.0) g/dL Amylase 79 (30-110) U/L Lipase 84 (23-300) U/L Urine Color Urine Appearance (Clear) Urine pH (5.0-8.0) Ur Specific [place] (1.001-1.035) Urine Protein (Negative) Urine Glucose (UA) (Negative) Urine Ketones (Negative) Urine Blood (Negative) Urine Nitrite (Negative) Urine Bilirubin (Negative) Urine Urobilinogen (<2.0) mg/dL Ur Leukocyte Esterase (Negative) Urine RBC (0-5) /hpf Urine WBC (0-5) /hpf Ur Squamous Epith Cells (0-4) /hpf Urine Mucus (None) /hpf Urine HCG, Qual (Not Detectd) - Radiology Data Radiology results: report reviewed, image reviewed Transvaginal ultrasound: The ultrasound gestational age is 7 weeks and 6 days. No complicating process seen. Disposition Clinical Impression: Abdominal pain, Disposition: HOME SELF-CARE Condition: Stable Instructions (If sedation given, give patient instructions): Abdominal Pain (ED) Additional Instructions: Please return to the Emergency Department if symptoms worsen or any other concerns. Follow-up with primary care to 4 days. 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 Continue to take Tylenol 500 every 4-6 hours as needed or Tylenol 650 mg every 6 hours as needed for pain. Work note given for light duty restrictions. Is patient prescribed a controlled substance at d/c from ED?: No Referrals: None,Stated [Primary Care Provider] - 1-2 days Time of Disposition: 22:30
[2021-01-19] MEDS ORDERED: ACETAMINOPHEN TAB 325 MG TAB PO STA (21:01)
[2021-01-19 21:25] LABS: Anisocytosis Slight; Basophils % (A) 0 %; Eosinophils # (A) 0.2 k/uL (0-0.7); Eosinophils % (A) 1 %; HCT 36.6 % (34.0-46.0); HGB 12.2 gm/dL (11.4-16.0); Lymphocytes # (A) 2.6 k/uL (1.0-4.8); Lymphocytes % (A) 18 %; MCH 26.1 pg (25.0-35.0); MCHC 33.3 g/dL (31.0-37.0); MCV 78.3 fL (80.0-100.0); Mean Platelet Volume 7.3; Microcytosis Slight; Monocytes # (A) 0.7 k/uL (0-1.0); Monocytes % (A) 5 %; Neutrophils % (A) 75 %; Platelet Count 292 k/uL (150-450); RBC 4.68 m/uL (3.80-5.40); RDW 16.6 % (11.5-15.5); WBC 14.6 k/uL (3.8-10.6)
[2021-01-19 21:31] LABS: Appearance,Urine Clear (Clear); Bilirubin,Urine Negative (Negative); Blood,Urine Negative (Negative); Color,Urine Yellow; Glucose,Urine (UA) Negative (Negative); Ketones,Urine Negative (Negative); Leukocyte Esterase,Urine Moderate (Negative); Mucus,Urine Rare /hpf; Nitrite,Urine Negative (Negative); Protein,Urine Trace (Negative); RBC,Urine 1 /hpf (0-5); Specific Gravity,Urine 1.026 (1.001-1.035); Squamous Epithelial Cell,Urine 3 /hpf (0-4); Urobilinogen,Urine <2.0 mg/dL (<2.0); WBC,Urine 3 /hpf (0-5)
--- NOTE | 2021-01-19 21:57 | US ---
EXAMINATION TYPE: Transabdominal DATE OF EXAM: 01/19/2021 9:42 PM COMPARISON: NONE CLINICAL HISTORY: rule out torsion. patient has pain radiating from her LLQ up to her left flank toda y, no bleeding, EXAM PERFORMED: OBTA - patient did not want TV imaging, tech was able to see ovaries to assess vascu larity transabdominally EXAM MEASUREMENTS: GESTATIONAL AGE / DATING Physician Established: Not yet established Dates by LMP: (8 weeks/0 days) EDC: 08/31/2021 Dates by First Scan: No previous this is first scan Dates by Current Scan for: (7 weeks/6 days) EDC: 09/01/2021 MATERNAL ANATOMY Uterus: 10.1 x 6.0 x 5.8cm Right Ovary: 3.9 x 2.9 x 2.6cm - good arterial and venous flow seen Left Ovary: 2.3 x 2.1 x 1.9cm - good arterial and venous flow seen Post CDS / Adnexa: wnl Presence of free fluid: no Presence of corpus luteal cyst: not seen Presence of subchorionic bleed: no GESTATION / SURVEY CRL: 1.5 (7 weeks/6 days) MSD: wnl Yolk Sac (normal less than 6mm): 0.3cm Heart Rate: 168 bpm Rhythm: Normal IUP: Viable IUP Date of LMP: 11/24/2020 IMPRESSION: The ultrasound gestational age is 7 weeks and 6 days. No complicating process seen.
[2021-01-19 21:59] LABS: ALT 13 U/L (4-34); AST 19 U/L (14-36); African American GFR (CKD) >90 (>60 ml/min/1.73 sqM); Albumin 4.5 g/dL (3.5-5.0); Alkaline Phosphatase 74 U/L (38-126); Amylase 79 U/L (30-110); Anion Gap 10 mmol/L; Blood Urea Nitrogen 12 mg/dL (7-17); Calcium 9.7 mg/dL (8.4-10.2); Carbon Dioxide 22 mmol/L (22-30); Chloride 103 mmol/L (98-107); Glucose 80 mg/dL (74-99); Lipase 84 U/L (23-300); Non-African American GFR(CKD) >90 (>60 ml/min/1.73 sqM); Sodium 135 mmol/L (137-145); Total Bilirubin 0.3 mg/dL (0.2-1.3); Total Protein 7.9 g/dL (6.3-8.2)
== END 2021-01-19 23:18 | disposition home or self-care (01) ==
LOC: EC 20:18
DX: O26.891 Other specified pregnancy related conditions, first trimester (principal); R10.84 Generalized abdominal pain; O99.511 Diseases of the respiratory system complicating pregnancy, first trimester; J45.909 Unspecified asthma, uncomplicated; Z3A.01 Less than 8 weeks gestation of pregnancy
CPT/HCPCS: 36415; 80053; 82150; 83690; 85025; 81001; 81025; 93975; 76801; 99284; 96374; 96375; 96361; J2270; J2405

== ENCOUNTER 2021-09-02 06:43 | Emergency (ER) | payer OTHER ==
[2021-09-02 06:52] VITALS: TEMP 98.3
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
[2021-09-02 08:33] VITALS: BP 121/93; PULSE 83; RESP 20
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
== END 2021-09-02 09:04 | disposition home or self-care (01) ==
LOC: EC 06:43
DX: S00.83XA Contusion of other part of head, initial encounter (principal); J45.909 Unspecified asthma, uncomplicated; F10.129 Alcohol abuse with intoxication, unspecified; Z88.8 Allergy status to other drugs, medicaments and biological substances; Y04.0XXA Assault by unarmed brawl or fight, initial encounter
CPT/HCPCS: 70450; 70486; 72125; 99284

== ENCOUNTER 2022-04-11 09:56 | Emergency (ER) | payer OTHER ==
[2022-04-11] MEDS ORDERED: SODIUM CHLORIDE 0.9% 1,000 ML IV STA (16:13)
[2022-04-11] MEDS ORDERED: KETOROLAC 15 MG/ML 1 ML VIAL IVP STA (16:13)
[2022-04-11 16:56] LABS: Basophils # (A) 0.1 k/uL (0-0.2); Basophils % (A) 1 %; Eosinophils # (A) 0.3 k/uL (0-0.7); Eosinophils % (A) 4 %; HCT 41.5 % (34.0-46.0); Lymphocytes # (A) 2.4 k/uL (1.0-4.8); Lymphocytes % (A) 32 %; MCH 28.1 pg (25.0-35.0); MCHC 31.3 g/dL (31.0-37.0); MCV 89.9 fL (80.0-100.0); Mean Platelet Volume 7.1; Monocytes # (A) 0.4 k/uL (0-1.0); Monocytes % (A) 5 %; Neutrophils # (A) 4.2 k/uL (1.3-7.7); Neutrophils % (A) 56 %; Platelet Count 286 k/uL (150-450); RBC 4.61 m/uL (3.80-5.40); RDW 15.2 % (11.5-15.5); WBC 7.5 k/uL (3.8-10.6)
[2022-04-11 17:02] LABS: INR 0.9 (<1.2); Partial Thromboplastin Time 23.3 sec (22.0-30.0); Prothrombin Time 10.2 sec (9.0-12.0)
[2022-04-11 17:08] LABS: ALT 14 U/L (4-34); AST 19 U/L (14-36); African American GFR (CKD) >90 (>60 ml/min/1.73 sqM); Albumin 4.2 g/dL (3.5-5.0); Alkaline Phosphatase 54 U/L (38-126); Amylase 72 U/L (30-110); Anion Gap 8 mmol/L; Blood Urea Nitrogen 12 mg/dL (7-17); Calcium 8.7 mg/dL (8.4-10.2); Carbon Dioxide 26 mmol/L (22-30); Chloride 104 mmol/L (98-107); Glucose 101 mg/dL (74-99); Lipase 123 U/L (23-300); Non-African American GFR(CKD) >90 (>60 ml/min/1.73 sqM); Potassium 4.6 mmol/L (3.5-5.1); Sodium 138 mmol/L (137-145); Total Bilirubin 0.4 mg/dL (0.2-1.3); Total Protein 7.4 g/dL (6.3-8.2)
[2022-04-11 17:14] LABS: Appearance,Urine Clear (Clear); Bilirubin,Urine Negative (Negative); Blood,Urine Large (Negative); Color,Urine Light Orange; Glucose,Urine (UA) Negative (Negative); Ketones,Urine Negative (Negative); Leukocyte Esterase,Urine Negative (Negative); Mucus,Urine Rare /hpf; Nitrite,Urine Negative (Negative); PH, Urine 8.5 (5.0-8.0); Protein,Urine Trace (Negative); RBC,Urine >182 /hpf (0-5); Specific Gravity,Urine 1.018 (1.001-1.035); Squamous Epithelial Cell,Urine 2 /hpf (0-4); Urobilinogen,Urine <2.0 mg/dL (<2.0); WBC,Urine <1 /hpf (0-5)
[2022-04-11 17:19] VITALS: TEMP 98.3
--- NOTE | 2022-04-11 18:07 | US ---
EXAMINATION TYPE: US abdomen limited DATE OF EXAM: 04/11/2022 COMPARISON: NONE CLINICAL HISTORY: RUQ pain. RUQ pain. EXAM MEASUREMENTS: Liver Length: 13.7 cm Gallbladder Wall: 0.17 cm CBD: 0.34 cm Right Kidney: 9.3 x 3.9 x 4.6 cm Pancreas: Appears wnl Liver: wnl Gallbladder: Appears wnl No evidence of pericholecystic fluid, gallbladder wall thickening, or jeyson lithiasis. Evidence for sonographic Mejia's sign: no CBD: wnl Right Kidney: No hydronephrosis or masses seen IMPRESSION: No evidence for acute process.
--- NOTE | 2022-04-11 18:09 | US ---
EXAMINATION TYPE: US venous doppler duplex LE LT DATE OF EXAM: 04/11/2022 5:40 PM COMPARISON: NONE CLINICAL HISTORY: swelling. Patient has lump on left anterolateral lower leg SIDE PERFORMED: Left TECHNIQUE: The lower extremity deep venous system is examined utilizing real time linear array sonog alvin with graded compression, doppler sonography and color-flow sonography. VESSELS IMAGED: Common Femoral Vein Deep Femoral Vein Greater Saphenous Vein * Femoral Vein Popliteal Vein Small Saphenous Vein * Proximal Calf Veins (* superficial vessels) Grayscale, color doppler, spectral doppler imaging performed of the deep veins of the lower extremiti es. There is normal flow, compressibility, vascular waveforms. Left Leg: Negative for DVT. Left anterolateral lower leg lump scanned; Heterogenous hypoechoic mass-like area that is well-circumscribed 4.2 x 2.3 x 3.6, without internal c olor Doppler flow. IMPRESSION: 1. No evidence for deep vein thrombosis of the left lower extremity. 2. Nonspecific soft tissue mass seen in the area of patient's lump. This is indeterminate and should be further characterized with nonemergent MRI with IV contrast.
--- NOTE | 2022-04-11 18:35 | ED ---
Abdominal Pain HPI - General Chief Complaint: Abdominal Pain Stated Complaint: Lump on Leg, Female issues Time Seen by Provider: 04/11/22 15:47 Source: patient Mode of arrival: ambulatory Limitations: no limitations - History of Present Illness Initial Comments: Patient is a 27-year-old female presenting with chief complaint of abdominal pain and vaginal bleeding. Patient has been having right upper quadrant pain for the last day, it comes and goes throughout the day. Patient also states she is having heavy vaginal bleeding. She states that she had vaginal bleeding last week, and this week is supposed to be her regular menstrual cycle. Patient admits to taking a morning after pill on 04/06. Patient also states that she has a lump on the left leg that she noticed a few days ago, she denies any injury or trauma to this area. She denies any nausea, vomiting, chest pain, shortness of breath, palpitations, dizziness, dysuria, hematuria, urgency, frequency, back pain, abdominal surgeries, constipation, diarrhea. - Related Data Home Medications Medication Instructions Recorded Confirmed No Known Home Medications 04/11/22 04/11/22 Allergies Allergy/AdvReac Type Severity Reaction Status Date / Time benzoyl peroxide Allergy Intermediate Swelling Verified 04/11/22 17:40 Review of Systems ROS Statement: Those systems with pertinent positive or pertinent negative responses have been documented in the HPI. ROS Other: All systems not noted in ROS Statement are negative. Past Medical History Past Medical History: Asthma History of Any Multi-Drug Resistant Organisms: None Reported Past Surgical History: No Surgical Hx Reported Past Anesthesia/Blood Transfusion Reactions: No Reported Reaction Past Psychological History: No Psychological Hx Reported Smoking Status: Never smoker Past Alcohol Use History: Occasional Past Drug Use History: Marijuana - Past Family History Mother Family Medical History: No Reported History General Exam Limitations: no limitations General appearance: alert, in no apparent distress Head exam: Present: atraumatic, normocephalic, normal inspection Eye exam: Present: normal appearance, EOMI. Absent: scleral icterus Neck exam: Present: normal inspection Respiratory exam: Present: normal lung sounds bilaterally. Absent: respiratory distress, wheezes, rales, rhonchi, stridor Cardiovascular Exam: Present: regular rate, normal rhythm, normal heart sounds. Absent: systolic murmur, diastolic murmur, rubs, gallop, clicks GI/Abdominal exam: Present: soft, tenderness (Right upper quadrant), normal bowel sounds. Absent: distended, guarding, rebound, rigid Neurological exam: Present: alert, oriented X3, CN II-XII intact Psychiatric exam: Present: normal affect, normal mood Skin exam: Present: warm, dry, intact, normal color. Absent: rash Course Vital Signs 04/11/22 04/11/22 10:46 17:19 Temperature 98.8 F 98.3 F Pulse Rate 90 86 Respiratory 16 17 Rate Blood Pressure 112/73 123/87 O2 Sat by Pulse 100 100 Oximetry Medical Decision Making - Medical Decision Making Patient is a 27-year-old female presenting with chief complaint of abdominal pain and vaginal bleeding. Pain is located in the right upper quadrant, she initially had vaginal bleeding last week, it resumed yesterday, this was supposed to be her regular menstrual cycle. She took a morning after pill on 04/06. Patient also states that there is a lump on her left aguirre, she denies any injury. On examination there is tenderness in the right upper quadrant, all other quadrants without tenderness, normal bowel sounds. Pelvic exam shows no signs of hemorrhage, no cervical motion tenderness or adnexal tenderness. Lab work is unremarkable. Urine hCG is negative, no signs of infection on UA. Abdominal ultrasound shows no abnormalities. Venous Doppler ultrasound shows no sign of DVT, recommended possible follow-up study with MRI with contrast. I educated the patient on all findings. She appears stable for discharge with outpatient follow-up at this time. Report back to ER if any worsening symptoms. Educated on return parameters alarm symptoms. Provided her with an LABORATORY COORDINATOR and primary care provider to follow-up with. Answered all questions. I encouraged supportive treatment with Motrin and Tylenol. Patient conveyed verbal understanding and agreed to the plan. I discussed this case with my attending Dr. Del Rio. - Lab Data Result diagrams: 04/11/22 16:33 04/11/22 16:33 Lab Results 04/11/22 04/11/22 04/11/22 Range/Units 16:33 16:33 16:33 WBC 7.5 (3.8-10.6) k/uL RBC 4.61 (3.80-5.40) m/uL Hgb 13.0 (11.4-16.0) gm/dL Hct 41.5 (34.0-46.0) % MCV 89.9 (80.0-100.0) fL MCH 28.1 (25.0-35.0) pg MCHC 31.3 (31.0-37.0) g/dL RDW 15.2 (11.5-15.5) % Plt Count 286 (150-450) k/uL MPV 7.1 Neutrophils % 56 % Lymphocytes % 32 % Monocytes % 5 % Eosinophils % 4 % Basophils % 1 % Neutrophils # 4.2 (1.3-7.7) k/uL Lymphocytes # 2.4 (1.0-4.8) k/uL Monocytes # 0.4 (0-1.0) k/uL Eosinophils # 0.3 (0-0.7) k/uL Basophils # 0.1 (0-0.2) k/uL PT (9.0-12.0) sec INR (<1.2) APTT (22.0-30.0) sec Sodium (137-145) mmol/L Potassium (3.5-5.1) mmol/L Chloride (98-107) mmol/L Carbon Dioxide (22-30) mmol/L Anion Gap mmol/L BUN (7-17) mg/dL Creatinine (0.52-1.04) mg/dL Est GFR (CKD-EPI)AfAm (>60 ml/min/1.73 sqM) Est GFR (CKD-EPI)NonAf (>60 ml/min/1.73 sqM) Glucose (74-99) mg/dL Plasma Lactic Acid Tuan (0.7-2.0) mmol/L Calcium (8.4-10.2) mg/dL Total Bilirubin (0.2-1.3) mg/dL AST (14-36) U/L ALT (4-34) U/L Alkaline Phosphatase (38-126) U/L Total Protein (6.3-8.2) g/dL Albumin (3.5-5.0) g/dL Amylase (30-110) U/L Lipase (23-300) U/L Urine Color Light [place] Urine Appearance Clear (Clear) Urine pH 8.5 H (5.0-8.0) Ur Specific [place] 1.018 (1.001-1.035) Urine Protein Trace H (Negative) Urine Glucose (UA) Negative (Negative) Urine Ketones Negative (Negative) Urine Blood Large H (Negative) Urine Nitrite Negative (Negative) Urine Bilirubin Negative (Negative) Urine Urobilinogen <2.0 (<2.0) mg/dL Ur Leukocyte Esterase Negative (Negative) Urine RBC >182 H (0-5) /hpf Urine WBC <1 (0-5) /hpf Ur Squamous Epith Cells 2 (0-4) /hpf Urine Mucus Rare H (None) /hpf Urine HCG, Qual Not Detected (Not Detectd) 04/11/22 04/11/22 04/11/22 Range/Units 16:33 16:33 16:33 WBC (3.8-10.6) k/uL RBC (3.80-5.40) m/uL Hgb (11.4-16.0) gm/dL Hct (34.0-46.0) % MCV (80.0-100.0) fL MCH (25.0-35.0) pg MCHC (31.0-37.0) g/dL RDW (11.5-15.5) % Plt Count (150-450) k/uL MPV Neutrophils % % Lymphocytes % % Monocytes % % Eosinophils % % Basophils % % Neutrophils # (1.3-7.7) k/uL Lymphocytes # (1.0-4.8) k/uL Monocytes # (0-1.0) k/uL Eosinophils # (0-0.7) k/uL Basophils # (0-0.2) k/uL PT 10.2 (9.0-12.0) sec INR 0.9 (<1.2) APTT 23.3 (22.0-30.0) sec Sodium 138 (137-145) mmol/L Potassium 4.6 (3.5-5.1) mmol/L Chloride 104 (98-107) mmol/L Carbon Dioxide 26 (22-30) mmol/L Anion Gap 8 mmol/L BUN 12 (7-17) mg/dL Creatinine 0.81 (0.52-1.04) mg/dL Est GFR (CKD-EPI)AfAm >90 (>60 ml/min/1.73 sqM) Est GFR (CKD-EPI)NonAf >90 (>60 ml/min/1.73 sqM) Glucose 101 H (74-99) mg/dL Plasma Lactic Acid Tuan <0.5 L (0.7-2.0) mmol/L Calcium 8.7 (8.4-10.2) mg/dL Total Bilirubin 0.4 (0.2-1.3) mg/dL AST 19 (14-36) U/L ALT 14 (4-34) U/L Alkaline Phosphatase 54 (38-126) U/L Total Protein 7.4 (6.3-8.2) g/dL Albumin 4.2 (3.5-5.0) g/dL Amylase 72 (30-110) U/L Lipase 123 (23-300) U/L Urine Color Urine Appearance (Clear) Urine pH (5.0-8.0) Ur Specific [place] (1.001-1.035) Urine Protein (Negative) Urine Glucose (UA) (Negative) Urine Ketones (Negative) Urine Blood (Negative) Urine Nitrite (Negative) Urine Bilirubin (Negative) Urine Urobilinogen (<2.0) mg/dL Ur Leukocyte Esterase (Negative) Urine RBC (0-5) /hpf Urine WBC (0-5) /hpf Ur Squamous Epith Cells (0-4) /hpf Urine Mucus (None) /hpf Urine HCG, Qual (Not Detectd) Disposition Clinical Impression: Dysfunctional uterine bleeding Disposition: HOME SELF-CARE Condition: Good Instructions (If sedation given, give patient instructions): Abnormal (Dysfunctional) Uterine Bleeding (ED), Acute Abdominal Pain (ED) Additional Instructions: Follow up with primary care and LABORATORY COORDINATOR this week. Report back to ER if any wors ening symptoms. Take Motrin and Tylenol for pain control as needed. Is patient prescribed a controlled substance at d/c from ED?: No Referrals: Cheo Samayoa MD [STAFF PHYSICIAN] - 1-2 days Andrew Median MD [STAFF PHYSICIAN] - 1-2 days Time of Disposition: 18:35
[2022-04-11 18:55] VITALS: BP 123/76; PULSE 76; RESP 16
== END 2022-04-11 18:55 | disposition home or self-care (01) ==
LOC: EC 09:56
DX: N93.8 Other specified abnormal uterine and vaginal bleeding (principal); F12.90 Cannabis use, unspecified, uncomplicated
CPT/HCPCS: 36415; 80053; 82150; 83605; 83690; 85025; 85610; 85730; 81001; 81025; 76705; 93971; 99284; 96374; 96361 ×2; J1885

== ENCOUNTER 2022-05-28 19:11 | Emergency (ER) | payer OTHER ==
[2022-05-28 21:32] VITALS: BP 113/79; PULSE 89; RESP 18; TEMP 98.2
--- NOTE | 2022-05-28 21:47 | ED ---
General Adult HPI - General Chief complaint: Extremity Injury, Lower Stated complaint: leg injury [facility] Time Seen by Provider: 05/28/22 21:39 Source: patient Mode of arrival: ambulatory - History of Present Illness Initial comments: Dictation was produced using gate5 dictation software. please excuse any grammatical, word or spelling errors. Chief Complaint: 27-year-old female presents to the emergency department for concerns of DVT History of Present Illness: 27-year-old female at work she hit her leg on the bed in. Patient states that her job is moving been straight she struck the left anterior portion of her mid tibia. She went and saw [facility]. Some specialist pressed aggressively on her left popliteal area which sent pain that went down her calf. Patient was told to come to the ER for concerns of deep venous thrombosis. Patient had a chest pain or shortness of breath. She does not have any calf pain at the moment. Patient denies any history of DVT. The ROS documented in this emergency department record has been reviewed and confirmed by me. Those systems with pertinent positive or negative responses have been documented in the HPI. All other systems are other negative and/or noncontributory. PHYSICAL EXAM: General Impression: Alert and oriented x3, not in acute distress HEENT: Normocephalic atraumatic, extra-ocular movements intact, pupils equal and reactive to light bilaterally, mucous membranes moist. Cardiovascular: Heart regular rate and rhythm Chest: Able to complete full sentences, no retractions, no tachypnea Abdomen: abdomen soft, non-tender, non-distended, no organomegaly Musculoskeletal: Pulses present and equal in all extremities, no peripheral edema Left lower extremity: Reported palpatory tenderness to the popliteal area, there is a hematoma over the left aguirre Motor: no focal deficits noted Neurological: CN II-XII grossly intact, no focal motor or sensory deficits noted Skin: Intact with no visualized rashes Psych: Normal affect and mood ED course: 27-year-old female sent to the emergency department for rule out DVT. Vital signs upon arrival are within acceptable limits.Ultrasound shows no DVT in the left lower extremity. Patient discharged - Related Data Home Medications Medication Instructions Recorded Confirmed No Known Home Medications 04/11/22 04/11/22 Allergies Allergy/AdvReac Type Severity Reaction Status Date / Time benzoyl peroxide Allergy Intermediate Swelling Verified 04/11/22 17:40 Review of Systems ROS Statement: Those systems with pertinent positive or pertinent negative responses have been documented in the HPI. ROS Other: All systems not noted in ROS Statement are negative. Past Medical History Past Medical History: Asthma History of Any Multi-Drug Resistant Organisms: None Reported Past Surgical History: No Surgical Hx Reported Past Anesthesia/Blood Transfusion Reactions: No Reported Reaction Past Psychological History: No Psychological Hx Reported Smoking Status: Current every day smoker, Vaper Past Alcohol Use History: Occasional Past Drug Use History: Marijuana - Past Family History Mother Family Medical History: No Reported History Course Vital Signs 05/28/22 21:22 Temperature 98.2 F Pulse Rate 89 Respiratory 18 Rate Blood Pressure 113/79 O2 Sat by Pulse 100 Oximetry Disposition Clinical Impression: Hematoma and contusion Disposition: HOME SELF-CARE Condition: Good Instructions (If sedation given, give patient instructions): Hematoma (ED) Is patient prescribed a controlled substance at d/c from ED?: No Referrals: None,Stated [Primary Care Provider] - 1-2 days Time of Disposition: 22:23
--- NOTE | 2022-05-28 22:26 | US ---
EXAMINATION TYPE: US venous doppler duplex LE LT DATE OF EXAM: 05/28/2022 9:39 PM COMPARISON: NONE CLINICAL HISTORY: rule out DVT. SIDE PERFORMED: Left TECHNIQUE: The lower extremity deep venous system is examined utilizing real time linear array sonog alvin with graded compression, doppler sonography and color-flow sonography. VESSELS IMAGED: Common Femoral Vein Deep Femoral Vein Greater Saphenous Vein * Femoral Vein Popliteal Vein Small Saphenous Vein * Proximal Calf Veins (* superficial vessels) Left Leg: Negative for DVT IMPRESSION: No evidence of deep vein thrombosis in the left leg.
== END 2022-05-28 22:35 | disposition home or self-care (01) ==
LOC: EC 19:11
DX: S80.12XA Contusion of left lower leg, initial encounter (principal); F17.200 Nicotine dependence, unspecified, uncomplicated; F12.90 Cannabis use, unspecified, uncomplicated; W22.8XXA Striking against or struck by other objects, initial encounter; Y99.0 Civilian activity done for income or pay
CPT/HCPCS: 99283

== ENCOUNTER → 2022-05-29 | Outpatient (CLI) | payer OTHER ==
--- NOTE | 2022-05-29 12:06 | XR ---
EXAMINATION TYPE: XR tibia fibula LT DATE OF EXAM: 05/29/2022 COMPARISON: NONE HISTORY: Pain TECHNIQUE: Two views are submitted. FINDINGS: The osseous structures are intact. The joint spaces are preserved. IMPRESSION: 1. No acute osseous abnormality.
== END | disposition home or self-care (01) ==
LOC: RADXRMAIN 11:45
PROVIDERS: ATTEND Emergency Medicine
DX: S80.12XD Contusion of left lower leg, subsequent encounter (principal); X58.XXXD Exposure to other specified factors, subsequent encounter

== ENCOUNTER 2022-08-26 12:26 | Emergency (ER) | payer OTHER ==
[2022-08-26 12:50] VITALS: BP 122/76; PULSE 111; RESP 20; TEMP 98.3
[2022-08-26] MEDS ORDERED: AMOXIC-POT CLAV 875-125MG 1 EACH TAB PO STA (13:25)
[2022-08-26] MEDS ORDERED: KETOROLAC 15 MG/ML 1 ML VIAL IM STA (13:25)
--- NOTE | 2022-08-26 14:25 | ED ---
ENT HPI - General Chief complaint: Dental/Oral Stated complaint: dental pain, facial swelling Time Seen by Provider: 08/26/22 12:54 Source: patient Mode of arrival: ambulatory Limitations: no limitations - History of Present Illness Initial comments: Patient is a 27-year-old female presenting with chief complaint of dental pain. Pain is located on the right upper side, has been present for the last 3 days. Patient does follow-up with a dentist, states that she has not followed up with them in a while. She has known dental caries and injuries to the area. There is swelling present she denies any difficulty breathing or swallowing. She has been icing the area which has improved the swelling, but the pain has been increasing. She denies any fever, chills, nausea, vomiting, neck pain or stiffness, headache, vision or hearing changes. - Related Data Previous Rx's Medication Instructions Recorded Amoxic-Pot Clav 875-125Mg 1 tab PO Q12HR 7 Days #14 tab 08/26/22 [Augmentin 875-125] Allergies Allergy/AdvReac Type Severity Reaction Status Date / Time benzoyl peroxide Allergy Intermediate Swelling Verified 08/26/22 12:49 Review of Systems ROS Statement: Those systems with pertinent positive or pertinent negative responses have been documented in the HPI. ROS Other: All systems not noted in ROS Statement are negative. Past Medical History Past Medical History: Asthma History of Any Multi-Drug Resistant Organisms: None Reported Past Surgical History: No Surgical Hx Reported Past Anesthesia/Blood Transfusion Reactions: No Reported Reaction Past Psychological History: No Psychological Hx Reported Smoking Status: Current every day smoker, Vaper Past Alcohol Use History: Occasional Past Drug Use History: Marijuana - Past Family History Mother Family Medical History: No Reported History General Exam Limitations: no limitations General appearance: alert, in no apparent distress Head exam: Present: atraumatic, normocephalic, normal inspection Eye exam: Present: normal appearance, PERRL, EOMI. Absent: scleral icterus, conjunctival injection, periorbital swelling Expanded Mouth exam: Present: tongue normal. Absent: drooling, trismus, muffled voice Teeth exam: Present: dental caries, fractured tooth #, dental tenderness #, gingival enlargement Throat exam: normal inspection Neck exam: Present: normal inspection. Absent: tenderness, meningismus, lymphadenopathy Neurological exam: Present: alert, oriented X3, CN II-XII intact Psychiatric exam: Present: normal affect, normal mood Skin exam: Present: warm, dry, intact, normal color. Absent: rash Course Vital Signs 08/26/22 12:48 Temperature 98.3 F Pulse Rate 111 H Respiratory 20 Rate Blood Pressure 122/76 O2 Sat by Pulse 99 Oximetry Procedures - Incision & Drainage Consent Obtained: verbal consent Site: oral Sterile Field Used?: No Needle Aspiration Performed?: Yes I&D Drainage Obtained: Pus, Blood Culture Obtained?: No Patient Tolerated Procedure: well, no complications Medical Decision Making - Medical Decision Making Patient is a 27-year-old female presenting with chief complaint of dental pain. Patient has noted increased pain and swelling to the right upper jaw for the last 3 days. She has known dental caries and broken teeth. On examination there is tenderness, welling, gingival enlargement. Needle aspiration was performed, patient reports relief after procedure. She is prescribed Augmentin twice a day for 7 days. Educated on supportive treatment. Follow-up with dentist. Follow-up with PCP. Report back to ER with any new or worsening symptoms. Discussed return parameters and answered all questions. Patient conveyed verbal understanding and agreed to the plan. I discussed this case in detail with my attending Dr. Li Disposition Clinical Impression: Dental abscess Disposition: HOME SELF-CARE Condition: Good Instructions (If sedation given, give patient instructions): Dental Abscess (ED), Toothache (ED) Additional Instructions: Follow up with dentist. Report back to ER with any new or worsening symptoms. Take Motrin and Tylenol as needed for pain control. Take medication as prescribed. Prescriptions: Amoxic-Pot Clav 875-125Mg [Augmentin 875-125] 1 tab PO Q12HR 7 Days #14 tab Is patient prescribed a controlled substance at d/c from ED?: No Referrals: None,Stated [Primary Care Provider] - 1-2 days Time of Disposition: 14:27
== END 2022-08-26 14:40 | disposition home or self-care (01) ==
LOC: EC 12:26
DX: L02.91 Cutaneous abscess, unspecified (principal); J45.909 Unspecified asthma, uncomplicated; F17.290 Nicotine dependence, other tobacco product, uncomplicated; F12.90 Cannabis use, unspecified, uncomplicated; Z79.899 Other long term (current) drug therapy
CPT/HCPCS: 10060; 99283; 96372; J1885

== ENCOUNTER 2024-03-24 12:23 | Observation (INO) | payer OTHER ==
[2024-03-24] MEDS: KETOROLAC 15 MG/ML 1 ML VIAL IVP STA (13:54)
[2024-03-24] MEDS: SODIUM CHLORIDE 0.9% 1,000 ML IV ONE (13:55)
[2024-03-24 14:00] LABS: Basophils # (A) 0.1 k/uL (0-0.2); Basophils % (A) 0 %; Eosinophils # (A) 0.3 k/uL (0-0.7); Eosinophils % (A) 2 %; HCT 42.1 % (34.0-46.0); HGB 13.4 gm/dL (11.4-16.0); Lymphocytes # (A) 1.4 k/uL (1.0-4.8); Lymphocytes % (A) 8 %; MCH 30.1 pg (25.0-35.0); MCHC 31.9 g/dL (31.0-37.0); MCV 94.4 fL (80.0-100.0); Mean Platelet Volume 7.6; Monocytes # (A) 0.6 k/uL (0-1.0); Monocytes % (A) 4 %; Neutrophils % (A) 86 %; Platelet Count 231 k/uL (150-450); RBC 4.46 m/uL (3.80-5.40); RDW 12.7 % (11.5-15.5); WBC 17.4 k/uL (3.8-10.6)
[2024-03-24 14:12] LABS: ALT 19 U/L (4-34); AST 23 U/L (14-36); African American GFR (CKD) >90 (>60 ml/min/1.73 sqM); Albumin 4.2 g/dL (3.5-5.0); Alkaline Phosphatase 94 U/L (38-126); Anion Gap 8 mmol/L; Blood Urea Nitrogen 12 mg/dL (7-17); Calcium 9.3 mg/dL (8.4-10.2); Carbon Dioxide 24 mmol/L (22-30); Chloride 104 mmol/L (98-107); Glucose 101 mg/dL (74-99); Non-African American GFR(CKD) >90 (>60 ml/min/1.73 sqM); Potassium 3.6 mmol/L (3.5-5.1); Sodium 136 mmol/L (137-145); Total Protein 7.5 g/dL (6.3-8.2)
[2024-03-24 14:24] LABS: Mucus,Urine Rare /hpf; RBC,Urine 178 /hpf (0-5); WBC,Urine 1 /hpf (0-5)
[2024-03-24 14:25] LABS: Appearance,Urine Bloody (Clear); Color,Urine Light Red
[2024-03-24 14:28] LABS: HCG,Quantitative Serum 178.2 mIU/mL
--- NOTE | 2024-03-24 14:55 | US ---
EXAMINATION TYPE: Transabdominal DATE OF EXAM: 03/24/2024 2:39 PM COMPARISON: NONE CLINICAL INDICATION: Female, 29 years old with history of vaginal bleeding, ; 08/26 Pain, ble eding EXAM PERFORMED: Transabdominal (TA) EXAM MEASUREMENTS: MATERNAL ANATOMY Uterus: 10.6 x 4.1 x 5.9 cm Right Ovary: 3.9 x 3.0 x 2.4 cm Left Ovary: 1.8 x 1.5 x 2.7 Post CDS / Adnexa: WNL Presence of free fluid: Within cervix Presence of corpus luteal cyst: Unknown Presence of subchorionic bleed: ? GESTATION / SURVEY CRL: Not seen ( weeks/ days) MSD: 0.78 (NA weeks/NA days) Yolk Sac (normal less than 6mm): Not seen Heart Rate: NA bpm Rhythm: NA IUP: No IUP seen at this time Nuchal Translucency 10-14wks (normal less than 3mm): NA Age Appropriate Anatomy Cord Insertion: NA Limbs: NA Calvarium: NA Date of LMP: Unknown Beta HcG (if available): 178 Patient not able to tolerate exam well. IMPRESSION: No evidence of intrauterine gestational sac in this patient with a positive B-hCG. This can be seen i n early , ectopic and spontaneous . Follow up pelvic ultrasound in 5-7 day s and serial beta hCG studies are recommended.
--- NOTE | 2024-03-24 16:29 | ED ---
Female Urogenital HPI - General Chief complaint: Vaginal Bleeding Stated complaint: Vaginal bleeding-preg.unsure how far Time Seen by Provider: 03/24/24 12:35 Source: patient Mode of arrival: ambulatory Limitations: no limitations - History of Present Illness Initial comments: 29-year-old female with past medical tree of asthma who presents emergency department vaginal bleeding. Patient is who started having heavy vaginal bleeding this morning. States that she is going through a pad an hour. She is unsure of her last menstrual cycle and therefore is unsure if she could possibly be . States that she has had unprotected intercourse. She has not taken any test. Patient then began having heavy clotting with extreme pain. Pain is suprapubic. Pain was so severe that she came to the emergency department. She not take anything for the pain yet. Unsure of her blood type. No other alleviating, precipitating modifying factors - Related Data Home Medications Medication Instructions Recorded Confirmed No Known Home Medications 03/24/24 03/24/24 Allergies Allergy/AdvReac Type Severity Reaction Status Date / Time benzoyl peroxide Allergy Intermediate Swelling Verified 03/24/24 17:31 Review of Systems ROS Statement: Those systems with pertinent positive or pertinent negative responses have been documented in the HPI. ROS Other: All systems not noted in ROS Statement are negative. Past Medical History Past Medical History: Asthma History of Any Multi-Drug Resistant Organisms: None Reported Past Surgical History: No Surgical Hx Reported Past Anesthesia/Blood Transfusion Reactions: No Reported Reaction Past Psychological History: No Psychological Hx Reported Smoking Status: Current every day smoker, Vaper Past Alcohol Use History: Occasional Past Drug Use History: Marijuana - Past Family History Mother Family Medical History: No Reported History General Exam Limitations: no limitations General appearance: alert, in distress (Patient comes into the emergency department screaming) Head exam: Present: atraumatic, normocephalic, normal inspection Eye exam: Present: normal appearance, PERRL, EOMI. Absent: scleral icterus, conjunctival injection, periorbital swelling ENT exam: Present: normal exam, mucous membranes moist Neck exam: Present: normal inspection. Absent: tenderness, meningismus, lymphadenopathy Respiratory exam: Present: normal lung sounds bilaterally. Absent: respiratory distress, wheezes, rales, rhonchi, stridor Cardiovascular Exam: Present: regular rate, normal rhythm, normal heart sounds. Absent: systolic murmur, diastolic murmur, rubs, gallop, clicks GI/Abdominal exam: Present: soft, normal bowel sounds. Absent: distended, tenderness, guarding, rebound, rigid Speculum exam: Present: vaginal bleeding (Moderate vaginal bleeding with clots). Absent: vaginal discharge Extremities exam: Present: normal inspection, full ROM, normal capillary refill. Absent: tenderness, pedal edema, joint swelling, calf tenderness Back exam: Present: normal inspection Neurological exam: Present: alert, oriented X3, CN II-XII intact Psychiatric exam: Present: normal affect, normal mood Skin exam: Present: warm, dry, intact, normal color. Absent: rash Course Vital Signs 03/24/24 03/24/24 12:33 17:23 Temperature 98.3 F 98.9 F Pulse Rate 94 101 H Respiratory 20 18 Rate Blood Pressure 139/65 105/71 O2 Sat by Pulse 100 99 Oximetry Medical Decision Making - Medical Decision Making Was pt. sent in by a medical professional or institution (, PA, [employer], urgent care, hospital, or shelter...) When possible be specific @ -No Did you speak to anyone other than the patient for history (EMS, parent, family, police, friend...)? What history was obtained from this source @ -No Did you review nursing and triage notes (agree or disagree)? Why? @ -I reviewed and agree with nursing and triage notes Were old charts reviewed (outside hosp., previous admission, EMS record, old EKG, old radiological studies, urgent care reports/EKG's, shelter records)? Report findings @ -No old charts were reviewed Differential Diagnosis (chest pain, altered mental status, abdominal pain women, abdominal pain men, vaginal bleeding, weakness, fever, dyspnea, syncope, headache, dizziness, GI bleed, back pain, seizure, CVA, palpatations, mental health, musculoskeletal)? @ -Differential Vaginal Bleeding: Spontaneous , threatened , molar , ectopic , bloody show, incompetent cervix, abruptioplacenta, placenta previa, uterine rupture, dysfunctional uterine bleeding, hemorrhage, uterine fibroids, this is not meant to be an all-inclusive list. EKG interpreted by me (3pts min.). @ -Not done X-rays interpreted by me (1pt min.). @ -None done CT interpreted by me (1pt min.). @ -None done U/S interpreted by me (1pt. min.). @ -Yes and no intrauterine is seen at this time. is undetermined location thus far with concern for possible miscarriage What testing was considered but not performed or refused? (CT, X-rays, U/S, labs)? Why? @ -None What meds were considered but not given or refused? Why? @ -None Did you discuss the management of the patient with other professionals (professionals i.e. DrBen, PA, [employer], lab, RT, psych nurse, social director, ultrasound tester, teacher, anti air warfare operations officer, rn field case manager)? Give summary @ -Spoke with Dr. Adams who will admit the patient Was smoking cessation discussed for >3mins.? @ -No Was critical care preformed (if so, how long)? @ -No Were there social determinants of health that impacted care today? How? (Homelessness, low income, unemployed, alcoholism, drug addiction, transportation, low edu. Level, literacy, decrease access to med. care, half-way, rehab)? @ -No Was there de-escalation of care discussed even if they declined (Discuss DNR or withdrawal of care, Hospice)? DNR status @ -No What co-morbidities impacted this encounter? (DM, HTN, Smoking, COPD, CAD, Cancer, CVA, ARF, Chemo, Hep., AIDS, mental health diagnosis, sleep apnea, morbid obesity)? @ -None Was patient admitted / discharged? Hospital course, mention meds given and route, prescriptions, significant lab abnormalities, going to OR and other pertinent info. @ -Upon arrival patient was seen and evaluated in room 33. She is in significant pain. She is screaming. She does spend a significant amount of time in the bathroom with heavy vaginal bleeding. IV was established. Laboratory studies are conducted. Patient was given a dose of morphine due to her significant pain. Ultrasound was performed. Beta quant is low. Nothing is visualized on ultrasound. At this time the patient has of undetermined location. She may have possible ectopic versus miscarriage. I did do a speculum exam which demonstrates a moderate amount of vaginal bleeding and clotting. I am concerned about the amount of bleeding that the patient is having and therefore I recommended observation. Called and spoke with Dr. Adams who was agreeable to this. Patient admitted to the family birthing floor in stable condition Undiagnosed new problem with uncertain prognosis? @ -Yes Drug Therapy requiring intensive monitoring for toxicity (Heparin, Nitro, Insulin, Cardizem)? @ -No Were any procedures done? @ -No Diagnosis/symptom? @ -Acute vaginal bleeding, of undetermined location, suspected incomplete miscarriage Acute, or Chronic, or Acute on Chronic? @ -Acute Uncomplicated (without systemic symptoms) or Complicated (systemic symptoms)? @ -Complicated Side effects of treatment? @ -No Exacerbation, Progression, or Severe Exacerbation? @ -No Poses a threat to life or bodily function? How? (Chest pain, [place], [place], pneumonia, PE, COPD, DKA, ARF, appy, cholecystitis, CVA, Diverticulitis, Homicidal, Suicidal, threat to staff... and all critical care pts) @ -Yes as location of cannot be determined at this time - Lab Data Result diagrams: 03/25/24 07:09 03/25/24 07:09 Lab Results 03/24/24 03/24/24 03/24/24 Range/Units 13:50 13:50 13:50 WBC 17.4 H (3.8-10.6) k/uL RBC 4.46 (3.80-5.40) m/uL Hgb 13.4 (11.4-16.0) gm/dL Hct 42.1 (34.0-46.0) % MCV 94.4 (80.0-100.0) fL MCH 30.1 (25.0-35.0) pg MCHC 31.9 (31.0-37.0) g/dL RDW 12.7 (11.5-15.5) % Plt Count 231 (150-450) k/uL MPV 7.6 Neutrophils % 86 % Lymphocytes % 8 % Monocytes % 4 % Eosinophils % 2 % Basophils % 0 % Neutrophils # 15.0 H (1.3-7.7) k/uL Lymphocytes # 1.4 (1.0-4.8) k/uL Monocytes # 0.6 (0-1.0) k/uL Eosinophils # 0.3 (0-0.7) k/uL Basophils # 0.1 (0-0.2) k/uL Sodium 136 L (137-145) mmol/L Potassium 3.6 (3.5-5.1) mmol/L Chloride 104 (98-107) mmol/L Carbon Dioxide 24 (22-30) mmol/L Anion Gap 8 mmol/L BUN 12 (7-17) mg/dL Creatinine 0.73 (0.52-1.04) mg/dL Est GFR (CKD-EPI)AfAm >90 (>60 ml/min/1.73 sqM) Est GFR (CKD-EPI)NonAf >90 (>60 ml/min/1.73 sqM) Glucose 101 H (74-99) mg/dL Calcium 9.3 (8.4-10.2) mg/dL Total Bilirubin 1.0 (0.2-1.3) mg/dL AST 23 (14-36) U/L ALT 19 (4-34) U/L Alkaline Phosphatase 94 (38-126) U/L Total Protein 7.5 (6.3-8.2) g/dL Albumin 4.2 (3.5-5.0) g/dL HCG, Quant 178.2 mIU/mL Urine Color Light Red Urine Appearance Bloody H (Clear) Urine RBC 178 H (0-5) /hpf Urine WBC 1 (0-5) /hpf Urine Mucus Rare H (None) /hpf Blood Type Blood Type Recheck Bld Type Recheck Status Antibody Screen Spec Expiration Date 03/24/24 Range/Units 13:50 WBC (3.8-10.6) k/uL RBC (3.80-5.40) m/uL Hgb (11.4-16.0) gm/dL Hct (34.0-46.0) % MCV (80.0-100.0) fL MCH (25.0-35.0) pg MCHC (31.0-37.0) g/dL RDW (11.5-15.5) % Plt Count (150-450) k/uL MPV Neutrophils % % Lymphocytes % % Monocytes % % Eosinophils % % Basophils % % Neutrophils # (1.3-7.7) k/uL Lymphocytes # (1.0-4.8) k/uL Monocytes # (0-1.0) k/uL Eosinophils # (0-0.7) k/uL Basophils # (0-0.2) k/uL Sodium (137-145) mmol/L Potassium (3.5-5.1) mmol/L Chloride (98-107) mmol/L Carbon Dioxide (22-30) mmol/L Anion Gap mmol/L BUN (7-17) mg/dL Creatinine (0.52-1.04) mg/dL Est GFR (CKD-EPI)AfAm (>60 ml/min/1.73 sqM) Est GFR (CKD-EPI)NonAf (>60 ml/min/1.73 sqM) Glucose (74-99) mg/dL Calcium (8.4-10.2) mg/dL Total Bilirubin (0.2-1.3) mg/dL AST (14-36) U/L ALT (4-34) U/L Alkaline Phosphatase (38-126) U/L Total Protein (6.3-8.2) g/dL Albumin (3.5-5.0) g/dL HCG, Quant mIU/mL Urine Color Urine Appearance (Clear) Urine RBC (0-5) /hpf Urine WBC (0-5) /hpf Urine Mucus (None) /hpf Blood Type A Positive Blood Type Recheck A Pos Bld Type Recheck Status No Antibody Screen NEGATIVE Spec Expiration Date 03/27/20242349 Disposition Clinical Impression: of unknown anatomic location, Vaginal bleeding Disposition: ADMITTED IP TO THIS [facility] Condition: Good Is patient prescribed a controlled substance at d/c from ED?: No Time of Disposition: 16:51 Decision to Admit Reason: Admit from EC Decision Date: 03/24/24 Decision Time: 16:51
[2024-03-24] MEDS ORDERED: NALOXONE 0.4 MG/ML 1 ML VIAL IV PRN (16:51)
[2024-03-24] MEDS ORDERED: IBUPROFEN 600 MG TAB PO STA (17:09)
[2024-03-24] MEDS: LACTATED RINGERS 1,000 ML IV ONE (17:41)
[2024-03-25] MEDS: IBUPROFEN IV 800 MG in SODIUM CHLORIDE 0.9% 250 ML IV ONE (03:17)
[2024-03-25] MEDS: ACETAMINOPHEN TAB 325 MG TAB PO PRN (03:42)
[2024-03-25 07:47] LABS: Basophils # (A) 0.1 k/uL (0-0.2); Basophils % (A) 1 %; Eosinophils # (A) 0.2 k/uL (0-0.7); Eosinophils % (A) 2 %; HGB 11.8 gm/dL (11.4-16.0); Lymphocytes # (A) 2.2 k/uL (1.0-4.8); Lymphocytes % (A) 27 %; MCH 30.8 pg (25.0-35.0); MCHC 32.7 g/dL (31.0-37.0); MCV 94.3 fL (80.0-100.0); Mean Platelet Volume 7.7; Monocytes # (A) 0.4 k/uL (0-1.0); Monocytes % (A) 5 %; Neutrophils # (A) 5.2 k/uL (1.3-7.7); Neutrophils % (A) 63 %; Platelet Count 196 k/uL (150-450); RBC 3.82 m/uL (3.80-5.40); RDW 12.7 % (11.5-15.5); WBC 8.3 k/uL (3.8-10.6)
[2024-03-25 08:04] LABS: African American GFR (CKD) >90 (>60 ml/min/1.73 sqM); Anion Gap 4 mmol/L; Blood Urea Nitrogen 10 mg/dL (7-17); Calcium 8.5 mg/dL (8.4-10.2); Carbon Dioxide 22 mmol/L (22-30); Chloride 108 mmol/L (98-107); Glucose 82 mg/dL (74-99); Non-African American GFR(CKD) >90 (>60 ml/min/1.73 sqM); Potassium 3.9 mmol/L (3.5-5.1); Sodium 134 mmol/L (137-145)
[2024-03-25 08:19] VITALS: BP 87/53; PULSE 84; RESP 16; TEMP 98.5
--- NOTE | 2024-03-25 09:51 | P.HPOB ---
History of Present Illness H&P Date: 03/24/24 Chief Complaint: Vaginal bleeding, positive test This is a 29-year-old that presented to the emergency department with complaints of increased pelvic cramping and bleeding noted once she was in the ED. Patient had a positive urine test, she did not realize she was at the time. She states her partner had a vasectomy. patient had passage of large clots, and continued bleeding. Quantitative beta-hCG 183. Patient's vital signs were stable but given the amount of bleeding she was uncomfortable going home. Review of Systems Constitutional: Reports fatigue, Denies chills, Denies fever Ears, nose, mouth and throat: Denies headache Cardiovascular: Denies leg edema Respiratory: Denies dyspnea Gastrointestinal: Denies nausea, Denies vomiting Genitourinary: Reports Past Medical History Past Medical History: Asthma History of Any Multi-Drug Resistant Organisms: None Reported Past Surgical History: No Surgical Hx Reported Past Anesthesia/Blood Transfusion Reactions: No Reported Reaction Past Psychological History: No Psychological Hx Reported Smoking Status: Current every day smoker, Vaper Past Alcohol Use History: Occasional Past Drug Use History: Marijuana Additional Drug Use History / Comment(s): Smokes occasionally - Past Family History Mother Family Medical History: No Reported History Medications and Allergies Home Medications Medication Instructions Recorded Confirmed Type No Known Home Medications 03/24/24 03/24/24 History Allergies Allergy/AdvReac Type Severity Reaction Status Date / Time benzoyl peroxide Allergy Intermediate Swelling Verified 03/24/24 17:31 Exam Osteopathic Statement: *. No significant issues noted on an osteopathic structural exam other than those noted in the History and Physical/Consult. Vital Signs Temp Pulse Pulse Resp BP BP Pulse Ox 03/25/24 03:20 89 20 101/71 98 03/25/24 00:30 98.3 F 74 18 100/63 98 03/24/24 18:30 98.4 F 77 16 107/73 98 03/24/24 17:23 98.9 F 101 H 18 105/71 99 03/24/24 12:33 98.3 F 94 20 139/65 100 Intake and Output 03/24/24 03/25/24 03/25/24 22:59 06:59 14:59 Other: # Voids 1 1 Weight 63.503 kg Targeted physical exam is performed this date in general this is a well- nourished well-developed female in no acute distress, breathing is nonlabored, heart has a regular and rhythm, abdomen is soft and nontender, per E D exam multiple clots were expressed from the cervix with continued bleeding appreciated. Results Result Diagrams: 03/25/24 07:09 03/25/24 07:09 Abnormal Lab Results - Last 24 Hours (Table) 03/24/24 03/24/24 03/24/24 Range/Units 13:50 13:50 13:50 WBC 17.4 H (3.8-10.6) k/uL Neutrophils # 15.0 H (1.3-7.7) k/uL Sodium 136 L (137-145) mmol/L Glucose 101 H (74-99) mg/dL Urine Appearance Bloody H (Clear) Urine RBC 178 H (0-5) /hpf Urine Mucus Rare H (None) /hpf Assessment and Plan (1) Missed ab Current Visit: Yes Status: Acute Code(s): O02.1 - MISSED SNOMED Code(s): 08431250 Plan: 29-year-old at unknown gestation, unknown LMP. Patient presents with vaginal bleeding and positive test. Given low nature of patient's beta-hCG suspect she will be able to pass tissue by herself, observation with pad counts serial CBCs.
--- NOTE | 2024-03-25 09:54 | P.DS ---
Providers Date of admission: 03/24/24 16:52 Expected date of discharge: 03/25/24 Attending physician: Emily Adams Primary care physician: Stated None - Discharge Diagnosis(es) (1) Missed ab Current Visit: Yes Status: Acute (2) Vaginal bleeding Current Visit: Yes Status: Acute Hospital Course: 29-year-old -0-1-1 status post complete AB. Patient presented yesterday to the emergency department with increased cramping and bleeding. Unbeknownst to her she was with a positive UCG. Beta hCG was performed confirming . Patient continued to pass large clots and was observed overnight given vaginal bleeding. Patient's vital signs remained stable through the night minimal bleeding was appreciated. Around 2 AM she did pass a large clots and has felt better since. Bleeding has been scant since passage of large clot. Hemoglobin this morning is stable at 11 to 13). And quantitative beta-hCG decreased to 79 Patient is comfortable this morning and will plan discharge home. Patient Condition at Discharge: Good Plan - Discharge Summary New Discharge Prescriptions: No Action No Known Home Medications Discharge Medication List No Known Home Medications 03/24/24 [History] Follow up Appointment(s)/Referral(s): None,Stated [Primary Care Provider] - 1-2 days Emily Adams DO [Doctor of Osteopathic Medicine] - 2 Weeks Activity/Diet/Wound Care/Special Instructions: No tub baths or intercourse until follow-up appointment. [id number] ibuprofen as needed for pain. 600 mg or 3 tablets every 6 hours as needed. Discharge Disposition: HOME SELF-CARE
== END 2024-03-25 12:17 | disposition home or self-care (01) ==
LOC: EC 12:23 → 4FBP 16:52
PROVIDERS: ADMIT Obstetrics & Gynecology Obstetrics; ATTEND Obstetrics & Gynecology Obstetrics
DX: O02.1 Missed abortion (principal); O99.511 Diseases of the respiratory system complicating pregnancy, first trimester; J45.909 Unspecified asthma, uncomplicated; O99.334 Smoking (tobacco) complicating childbirth; F17.290 Nicotine dependence, other tobacco product, uncomplicated
CPT/HCPCS: 96361 ×2; 96365; 96375; 99285; 36415; 86900; 86901; 80053; 80048; 85025 ×2; 86850; 81001; 84702 ×2; 76801; G0378 ×2; J1885; J1741